=== PATIENT | female | born 1960 | race Caucasian/White ===

== ENCOUNTER 2024-09-19 10:02 | Emergency (ER) | payer MEDICARE, SELFPAY ==
[2024-09-19 10:10] VITALS: BP 174/71
[2024-09-19 11:02] VITALS: BMI 53.5
[2024-09-19 11:05] VITALS: BP 150/58
--- NOTE | 2024-09-19 11:22 | ED.GENMED ---
History of Present Illness
General
Chief Complaint: Vaginal Bleeding
Source: patient
Exam Limitations: none
Time Seen by Provider: 09/19/24 11:04
History of Present Illness
History of Present Illness:
64-year-old female presents with multiple complaints. She states she has been having vaginal bleeding over the past 2 months. She had a D&C performed at [facility]. She also had an IUD placed at that time. She noted ongoing bleeding
was seen in the emergency room at [facility] and had a pelvic exam. She describes her IUD being pushed out during the pelvic exam. Since then she is to talk to her gynecology who placed her on progesterone. She has been on this for
several days but notes increased bleeding. She has not been able to get a hold of her supervisor coffee over the past couple days. She also was placed on Bactrim 4 days ago for a lesion on the anterior chest. She believes there is an abscess there.
She notes she is fatigued and having palpitations as well. Patient notes she passes large clots at times and soaked through a pad every 2 hours.
Past History
Past History
ED Past Medical History: HTN, Hypercholesterolemia, NIDDM, Other (lymphedema) and Other (Calculus cholecystitis)
ED Past Surgical History: Cardiac, Gynecological and Other (cataracts. Vein surgery)
Social History
Tobacco: Non-smoker
Alcohol: None
Drug: None
Personal:
Living: with family
Employment: Retired
Family History
Family History: Other (Noncontributory)
Phy Exam
Physical Exam
Physical Exam:
General: Well-appearing obese female no acute respiratory distress
HEENT: Normocephalic atraumatic
Heart: Regular rate and rhythm
Lungs: Clear
Abdomen soft tender to the lower abdomen and suprapubic area
Extremities: No cyanosis or edema
Skin: Erythema and fluctuance noted overlying the lower sternum and between the breasts. She is tender to the touch no active drainage
Course
Orders/Labs/Results
Orders:
Orders
09/19/24 10:03
Electrocardiogram (*1) Urgent
Reason for Study: Chest Pain
EKG- Treatment ONCE
09/19/24 11:17
US Chest - Left Urgent
Comment:
Reason For Exam: possible abscess anterior chest
US Pelvis W Transvag Combined Urgent
Comment:
Reason For Exam: vaginal bleeding, pelvic pain
09/19/24 11:51
Blood Group&Type Urgent
BBK Wristband Number:
Complete Blood Count/With Diff Urgent
Comprehensive Metabolic Panel Urgent
09/19/24 12:15
Type+Screen Routine
BBK Wristband Number:
Abnormal Lab Results
09/19/24
11:51
RBC 3.72 L 10^6/uL
(4.20-5.40)
Hgb 11.7 L g/dL
(12.0-16.0)
Hct 35.8 L %
(37.0-47.0)
MCH 31.5 H pg
(27.0-31.0)
MCHC 32.7 L g/dL
(33.0-37.0)
Absolute Monos (auto) 0.8 H 10^3/uL
(0.1-0.6)
Monocytes % 12.7 H %
(1.7-9.3)
Glucose 128 H mg/dl
(70-99)
09/19/24 11:51
09/19/24 11:51
Vital Signs
Initial and Last Documented VS:
Initial Vital Signs
Temp Pulse Resp BP Pulse Ox
98.5 F 65 18 174/71 100
09/19/24 10:10 09/19/24 10:10 09/19/24 10:10 09/19/24 10:10 09/19/24 10:10
Last Documented Vital Signs
Temp Pulse Resp BP Pulse Ox
98.5 F 64 14 117/55 97
09/19/24 15:31 09/19/24 15:31 09/19/24 15:31 09/19/24 15:31 09/19/24 15:31
MDM/Problems Addressed
Differential Diagnosis Includes:
Patient with multiple. First complaint is ongoing vaginal bleeding status post D&C performed at [facility]. Check for anemia or electrolyte abnormality. Will order ultrasound of the pelvis.
Second complaint is ongoing painful spot on the anterior chest and between her breasts. Question possible cellulitis versus abscess. Ultrasound of this pending
She complained of palpitations. This may be related to blood loss however she is normal sinus rhythm 60s on the monitor. Will obtain formal EKG.
*Critical Care Note
Total Time (30-74mins, 75-104mins- exclusive of procedures): Not Applicable
Update Note
Update Note:
Labs reviewed hemoglobin 11.7. She remained hemodynamically stable. Ultrasound of pelvis shows no evidence of IUD. There is a slightly thickened endometrial stripe. There is also an ovarian cyst which is chronic. There is a sebaceous cyst on
the anterior chest wall that is infected on ultrasound. These findings with the patient's supervisor coffee, Doctor Slim Lagunas, from [facility]. He was aware of all these findings. He is findings are chronic. Will represcribe Provera 10
mg twice a day. They will follow-up with her.
With sebaceous cyst was incised and drained under sterile conditions. A large amount of purulent material as well as sebaceous material and the wall the cyst was removed from the incision. This was dressed with a dry dressing. She is currently on
an antibiotic which advise she continue. No indication for admission. Stable for discharge
ED Attending Note
-
Portions of this chart may have been created with voice recognition software.� Occasional wrong word or��sound alike� substitutions may have occurred due to the inherent limitations of voice recognition software.
Discharge Plan
Departure
Patient Disposition: Home (Routine Discharge)
Date of Disposition: 09/19/24
Time of Disposition: 16:05
Patient with high blood pressure during this ER visit?: No
Discharge Problem:
Abnormal vaginal bleeding, Infected sebaceous cyst
Prescriptions:
New
medroxyprogesterone [Provera] 10 mg tablet
10 mg PO BID Qty: 14 0RF
No Action
cetirizine 10 MG tablet
10 mg PO DAILY
allopurinol 300 MG tablet
300 mg PO DAILY
gabapentin 100 MG capsule
200 mg PO TID
cholecalciferol (vitamin D3) [Vitamin D3] 1,000 UNIT capsule
50,000 unit PO WE
aspirin 81 MG tablet,chewable
81 mg PO DAILY 0RF
albuterol sulfate [Ventolin HFA] 90 MCG/PUFF HFA aerosol inhaler
2 puff inhalation Q4HPRN PRN (Reason: sob)
ezetimibe 10 MG tablet
10 mg PO DAILY
levothyroxine 125 MCG tablet
125 mcg PO DAILY AT 0700
nitrofurantoin 100 mg Capsule
100 mg PO .1900
sulfamethoxazole-trimethoprim [Bactrim DS] 800-160 mg Tablet
1 tab PO BID
vitamin E 400 unit Tablet
45 mg PO DAILY
betamethasone dipropionate 0.05 % Cream
1 applic TOPICAL DAILY
norethindrone acetate 5 mg Tablet
5 mg PO TID
ketoconazole 2 % Cream
1 applic TOPICAL BID
liraglutide [Victoza 2-Alejo] 0.6 mg/0.1 mL (18 mg/3 mL) Pen Injector
1.8 mg SC DAILY
mirabegron [Myrbetriq] 50 mg Tablet Extended Release 24 Hr
50 mg PO DAILY
fluticasone furoate-vilanterol [Breo Ellipta] 200-25 mcg/dose Blister With Device
1 inh INHALATION DAILY
Praluent Pen 150 mg/mL Pen Injector
150 mg SC Q14D
furosemide [Lasix] 40 MG tablet
20 mg PO DAILY
losartan 50 MG tablet
50 mg PO BID
carvedilol 6.25 MG tablet
6.25 mg PO BID
hydrocodone-acetaminophen 1 EACH tablet
1 ea PO PRN PRN (Reason: pain)
insulin aspart U-100 [Novolog U-100 Insulin aspart] 1,000 UNITS/10 ML solution
20 units SC AC
Levemir U-100 Insulin 1,000 UNITS/10 ML solution
30 - 40 units SC HS
Referrals:
UNKNOWN - PT DOES,NOT KNOW [Family Provider] -
Activity Restrictions/Additional Instructions:
Continue antibiotic. Continue with progesterone. Follow-up with your supervisor coffee. Return if worse otherwise.
Interventions
Interventions:
*Risk Screen - Suicide Last Done: 09/19/24 10:10
*General Assessment Last Done: 09/19/24 10:10
*Neglect/Abuse Screening Last Done: 09/19/24 10:10
ED- Fall Risk Assessment Last Done: 09/19/24 11:03
*ED COVID-19 Vaccine History Last Done: 09/19/24 11:02
ED- Pulmonary Assessment Last Done: 09/19/24 15:31
ED- Neurological Assessment Last Done: 09/19/24 15:31
ED-Female Genitourinary Assessment Last Done: 09/19/24 11:11
ED- Cardiac Assessment Last Done: 09/19/24 15:31
Discharge Date and Time
Print Language: FRISIAN
[2024-09-19 12:11] LABS: % Basophils 0.7 % (0-2); % Eosinophils 3.1 % (0-6); % Immature Granulocytes 0.3 % (0-0.5); % Lymphocytes 35.1 % (20.5-51.1); % Monocytes 12.7 % (1.7-9.3); % Neutrophils 48.1 % (42.2-75.2); Absolute Eosinophils 0.2 10^3/uL (0-0.7); Absolute Lymphocytes 2.2 10^3/uL (1.2-3.4); Absolute Monocytes 0.8 10^3/uL (0.1-0.6); Hematocrit 35.8 % (37.0-47.0); Hemoglobin 11.7 g/dL (12.0-16.0); Mean Corp Hgb Conc. 32.7 g/dL (33.0-37.0); Mean Corpuscular Hgb 31.5 pg (27.0-31.0); Mean Corpuscular Volume 96.2 fL (81.0-99.0); Nucleated Red Blood Cells % 0 %; Platelet Count 203 10^3/uL (130-400); Red Blood Cell Count 3.72 10^6/uL (4.20-5.40); Red Cell Dist. Width 13.3 % (11.5-14.5); White Blood Cell Count 6.1 10^3/uL (4.8-10.8)
[2024-09-19 12:19] VITALS: BP 138/67
[2024-09-19 12:28] LABS: ALT (SGPT) 28 U/L (0-35); AST (SGOT) 34 U/L (14-36); Albumin 3.6 g/dl (3.5-5.0); Alkaline Phosphatase 50 U/L (38-126); Blood Urea Nitrogen 16 mg/dl (7-17); Calcium 9.1 mg/dl (8.4-10.2); Carbon Dioxide 24 mmol/L (22-30); Chloride 105 mmol/L (98-107); Estimated Creatinine Clearance 93 ml/min; Glucose 128 mg/dl (70-99); Potassium 4.7 mmol/L (3.5-5.1); Sodium 137 mmol/L (135-145); Total Bilirubin 0.7 mg/dl (0.2-1.3); Total Protein 6.5 g/dl (6.3-8.2); eGFR > 60.00
[2024-09-19 13:11] VITALS: BP 150/72
[2024-09-19 15:31] VITALS: BP 117/55
== END 2024-09-19 16:25 | disposition home or self-care (01) ==
LOC: EMR 10:02
PROVIDERS: Physician Assistant; EMERGENCY PHYSICIAN Emergency Medicine
DX: N93.9 Abnormal uterine and vaginal bleeding, unspecified (principal); L08.9 Local infection of the skin and subcutaneous tissue, unspecified; L72.3 Sebaceous cyst
CPT/HCPCS: 99285; 10060; 76604; 76830; 76856; 80053; 85025; 86850; 86900; 86901; 93005

== ENCOUNTER 2024-09-22 11:54 | Emergency (ER) | payer MEDICARE, SELFPAY ==
[2024-09-22 11:57] VITALS: BP 212/98
[2024-09-22 12:23] LABS: % Basophils 0.5 % (0-2); % Eosinophils 3.5 % (0-6); % Immature Granulocytes 0.5 % (0-0.5); % Monocytes 8.3 % (1.7-9.3); % Neutrophils 53.2 % (42.2-75.2); Absolute Eosinophils 0.2 10^3/uL (0-0.7); Absolute Lymphocytes 2.2 10^3/uL (1.2-3.4); Absolute Monocytes 0.5 10^3/uL (0.1-0.6); Absolute Neutrophils 3.5 10^3/uL (1.4-6.5); Hematocrit 35.9 % (37.0-47.0); Mean Corp Hgb Conc. 33.4 g/dL (33.0-37.0); Mean Corpuscular Hgb 32.4 pg (27.0-31.0); Mean Platelet Volume 9.7 fL (7.4-10.4); Nucleated Red Blood Cells % 0 %; Platelet Count 240 10^3/uL (130-400); Red Cell Dist. Width 13.2 % (11.5-14.5); White Blood Cell Count 6.5 10^3/uL (4.8-10.8)
[2024-09-22 12:39] LABS: ALT (SGPT) 39 U/L (0-35); AST (SGOT) 38 U/L (14-36); Albumin 3.7 g/dl (3.5-5.0); Alkaline Phosphatase 55 U/L (38-126); Blood Urea Nitrogen 14 mg/dl (7-17); Calcium 9.2 mg/dl (8.4-10.2); Carbon Dioxide 24 mmol/L (22-30); Chloride 103 mmol/L (98-107); Glucose 245 mg/dl (70-99); Potassium 4.4 mmol/L (3.5-5.1); Sodium 136 mmol/L (135-145); Total Bilirubin 0.7 mg/dl (0.2-1.3); Total Protein 6.7 g/dl (6.3-8.2); eGFR > 60.00
--- NOTE | 2024-09-22 12:43 | ED.GENMED ---
History of Present Illness
General
Chief Complaint: Vaginal Bleeding
Source: patient
Exam Limitations: none
Time Seen by Provider: 09/22/24 12:44
Nursing documentation reviewed up to this point in time: agreed with
History of Present Illness
History of Present Illness:
64 old female presents to the ER for evaluation of continued vaginal bleeding. She has had vaginal bleeding for the past 3 months. She is followed by [facility]. They are aware. Patient was seen here September 19 3 days ago
days ago for similar complaints. At that time she had an ultrasound which showed a slightly thickened endometrial stripe. She had chronic ovarian cyst. Patient was prescribed Provera 10 mg twice a day as recommended by her TIRE MAKER(as per her
[facility] [employer] [employer] at [facility] . She reports last night she passed a 6 golf ball size clots which is what prompted her to come back to the ER. She called her [employer] and spoke to the nurse who recommended she come to the ER. She does feel lightheaded and dehydrated.
Past History
Past History
ED Past Medical History: HTN, Hypercholesterolemia, NIDDM, Other (lymphedema) and Other (Calculus cholecystitis)
ED Past Surgical History: Cardiac, Gynecological and Other (cataracts. Vein surgery)
Social History
Tobacco: Non-smoker
Alcohol: None
Drug: None
Personal:
Living: with family
Employment: Retired
Family History
Family History: Other (Noncontributory)
Review of Systems
Review of Systems
Allergies reviewed?: Yes
All Other Systems: ROS reviewed and negative except as documented in HPI and ROS
Constitutional: Reports no symptoms
ABD/GI: Reports other (mild lower abd cramping + vaginal bleeding/clots )
: Reports no symptoms
Musculoskeletal: Reports no symptoms
Skin: Reports no symptoms
Neurological: Reports no symptoms
Psychiatric: Reports no symptoms
Phy Exam
General Physical Exam
General Presentation: no apparent distress
General age: appears stated age
General Skin: warm and dry
General Habitus: normal
General Mental: alert
General Hydration: appears well hydrated
Gastrointestinal Exam
Gastrointestinal Exam: non tender and soft
Genitourinary Exam Female
Exam Female: other ( no active bleeding + small amt of blood in vaginal vault )
Neurological Exam
Neurological Exam: alert and oriented x3
Musculoskeletal Exam
Musculoskeletal Exam: full ROM
Skin Exam
Skin Exam: normal color and warm/dry
Psychiatric Exam
Psychiatric Exam: normal mood/affect
Course
Orders/Labs/Results
Orders:
Orders
09/22/24 12:01
Electrocardiogram (*1) Urgent
Reason for Study: Palpitations
EKG- Treatment ONCE
09/22/24 12:15
CMP [Comprehensive Metabolic Panel] Urgent
Complete Blood Count/With Diff Urgent
09/22/24 14:03
Vital Signs- Treatment ONCE
Frequency: Once
Abnormal Lab Results
09/22/24
12:15
RBC 3.70 L 10^6/uL
(4.20-5.40)
Hct 35.9 L %
(37.0-47.0)
MCH 32.4 H pg
(27.0-31.0)
Glucose 245 H mg/dl
(70-99)
AST 38 H U/L
(14-36)
ALT 39 H U/L
(0-35)
09/22/24 12:15
09/22/24 12:15
Vital Signs
Initial and Last Documented VS:
Initial Vital Signs
Temp Pulse Resp BP Pulse Ox
98.1 F 90 20 212/98 100
09/22/24 11:57 09/22/24 11:57 09/22/24 11:57 09/22/24 11:57 09/22/24 11:57
Last Documented Vital Signs
Temp Pulse Resp BP Pulse Ox
98.1 F 84 20 147/58 97
09/22/24 11:57 09/22/24 14:00 09/22/24 14:00 09/22/24 14:36 09/22/24 14:00
Asphalt Smoother consulted with Physician
Asphalt Smoother consulted with physician?: Yes
Name of Physician Consulted: Desire
MDM/Problems Addressed
MDM/Problems Addressed:
64-year-old female with chronic vaginal bleeding for several months presents to the ER. Patient has been followed by [facility] [employer] . Patient was seen here 3 days ago and had ultrasound as documented above. Her TIRE MAKER at that time
recommended 10 mg of Provera twice a day.
She presents back to the ER with persistent vaginal bleeding. She reports he feels a little dizzy and lightheaded. She however presents very stable and awake alert no acute distress hemoglobin is actually improved from previous visit 3 days ago.
Hemoglobin is stable at 12.0. On pelvic exam there is no active bleeding there is small amount of blood in the vaginal vault. I did speak with her TIRE MAKER on-call again Dr. Dumont who does recommend increasing Provera from 10 mg twice daily to 10
mg 3 times daily and she is to follow-up in their office for future management.
ED Attending Note
-
Portions of this chart may have been created with voice recognition software.� Occasional wrong word or��sound alike� substitutions may have occurred due to the inherent limitations of voice recognition software.
Discharge Plan
Departure
Patient Disposition: Home (Routine Discharge)
Date of Disposition: 09/22/24
Time of Disposition: 14:03
Patient with high blood pressure during this ER visit?: Yes
Condition: Fair
Covid-19: Not Applicable
Discharge Problem:
vaginal bleeding
Instructions: BLOOD PRESSURE
Prescriptions:
New
medroxyprogesterone [Provera] 10 mg tablet
10 mg PO TID Qty: 21 0RF
No Action
cetirizine 10 MG tablet
10 mg PO DAILY
allopurinol 300 MG tablet
300 mg PO DAILY
gabapentin 100 MG capsule
200 mg PO TID
cholecalciferol (vitamin D3) [Vitamin D3] 1,000 UNIT capsule
50,000 unit PO WE
aspirin 81 MG tablet,chewable
81 mg PO DAILY 0RF
albuterol sulfate [Ventolin HFA] 90 MCG/PUFF HFA aerosol inhaler
2 puff inhalation Q4HPRN PRN (Reason: sob)
ezetimibe 10 MG tablet
10 mg PO DAILY
levothyroxine 125 MCG tablet
125 mcg PO DAILY AT 0700
nitrofurantoin 100 mg Capsule
100 mg PO .1900
sulfamethoxazole-trimethoprim [Bactrim DS] 800-160 mg Tablet
1 tab PO BID
vitamin E 400 unit Tablet
45 mg PO DAILY
betamethasone dipropionate 0.05 % Cream
1 applic TOPICAL DAILY
norethindrone acetate 5 mg Tablet
5 mg PO TID
ketoconazole 2 % Cream
1 applic TOPICAL BID
liraglutide [Victoza 2-Alejo] 0.6 mg/0.1 mL (18 mg/3 mL) Pen Injector
1.8 mg SC DAILY
mirabegron [Myrbetriq] 50 mg Tablet Extended Release 24 Hr
50 mg PO DAILY
fluticasone furoate-vilanterol [Breo Ellipta] 200-25 mcg/dose Blister With Device
1 inh INHALATION DAILY
Praluent Pen 150 mg/mL Pen Injector
150 mg SC Q14D
furosemide [Lasix] 40 MG tablet
20 mg PO DAILY
medroxyprogesterone [Provera] 10 mg tablet
10 mg PO BID Qty: 14 0RF
losartan 50 MG tablet
50 mg PO BID
carvedilol 6.25 MG tablet
6.25 mg PO BID
hydrocodone-acetaminophen 1 EACH tablet
1 ea PO PRN PRN (Reason: pain)
insulin aspart U-100 [Novolog U-100 Insulin aspart] 1,000 UNITS/10 ML solution
20 units SC AC
Levemir U-100 Insulin 1,000 UNITS/10 ML solution
30 - 40 units SC HS
Activity Restrictions/Additional Instructions:
You were seen here today for persistent vaginal bleeding. As discussed your hemoglobin is stable at 12.0. As discussed with your TIRE MAKER you may increase your Provera from 10 mg twice a day to 10 mg 3 times a day. Please follow-up with your
com writer in the next several days call today to make an appointment. Return if any worsening of symptoms.
Interventions
Interventions:
*Risk Screen - Suicide Last Done: 09/22/24 11:57
*General Assessment Last Done: 09/22/24 11:57
*Neglect/Abuse Screening Last Done: 09/22/24 11:57
*ED COVID-19 Vaccine History Last Done: 09/22/24 11:57
*Nursing Disposition Last Done: 09/22/24 14:39
ED-Female Genitourinary Assessment Last Done: 09/22/24 13:15
Discharge Date and Time
Discharge Date/Time: 09/22/24 14:39
Print Language: TAJIK
[2024-09-22 14:00] VITALS: BP 147/63
[2024-09-22 14:36] VITALS: BP 147/58
== END 2024-09-22 14:39 | disposition home or self-care (01) ==
LOC: EMR 11:54
PROVIDERS: EMERGENCY PHYSICIAN Emergency Medicine
DX: N93.9 Abnormal uterine and vaginal bleeding, unspecified (principal); R42 Dizziness and giddiness; E78.00 Pure hypercholesterolemia, unspecified; I10 Essential (primary) hypertension; E11.9 Type 2 diabetes mellitus without complications; Z87.42 Personal history of other diseases of the female genital tract; Z79.899 Other long term (current) drug therapy
CPT/HCPCS: 99284; 80053; 85025; 93005

== ENCOUNTER 2024-10-02 15:18 | Emergency (ER) | payer MEDICARE, SELFPAY ==
[2024-10-02 15:42] VITALS: BP 175/104
--- NOTE | 2024-10-02 15:54 | ED.GENMED ---
ED Provider Triage
<Jonna Brennan PA-C - Last Filed: 10/02/24 15:56>
-
Patient seen by provider in Triage?: Seen in Triage
Attestation: A medical screening examination has been initiated by a qualified medical provider. Based on the assessment performed at this time, it has been determined that an emergent medical condition may exist and the patient has been informed
that further medical evaluation and possible additional diagnostic testing may be needed.
HPI: 64yoF here with SOB primarily with exertion x 1 week. Also having palpitations. Hx CAD and CHF. States symptoms feel more like asthma.
GENERAL: Alert , in no apparent distress
EYE: No visual abnormalities.
NECK: Trachea midline
ENT: No visible abnormalities.
LUNGS: No acute respiratory distress
NEUROLOGICAL: Alert and oriented
SKIN: Skin intact. No visible changes.
MUSCULOSKELETAL: Moving extremities normally
PSYCH: Normal and appropriate interaction.
This is a medical evaluation conducted in person to initiate diagnostic evaluation and provide initial therapeutics. Please see further documentation by the treating clinician.
Cardiac labs, EKG, and CXR ordered.
History of Present Illness
<Jonna Brennan PA-C - Last Filed: 10/02/24 15:56>
General
Chief Complaint: Breathing Problem
Time Seen by Provider: 10/02/24 18:17
<Kevin Brian PA-C - Last Filed: 10/02/24 22:21>
General
Source: patient
Exam Limitations: none
History of Present Illness
History of Present Illness:
64-year-old female with history of CHF, CAD and ongoing vaginal bleeding presents with shortness of breath with exertion worsening over the past week. She has been here twice in the recent past for ongoing vaginal bleeding. She is followed by
supervisor channel process, Dr. Dumont, at [facility]. She is on Provera 10 mg 3 times a day. She notes she is passing large clots now. She feels like she cannot exchange any oxygen when she breathes in. She denies significant chest pain.
Past History
<Jonna Brennan PA-C - Last Filed: 10/02/24 15:56>
Past History
ED Past Medical History: HTN, Hypercholesterolemia, NIDDM, Other (lymphedema) and Other (Calculus cholecystitis)
ED Past Surgical History: Cardiac, Gynecological and Other (cataracts. Vein surgery)
Social History
Tobacco: Non-smoker
Alcohol: None
Drug: None
Personal:
Living: with family
Employment: Retired
Family History
Family History: Other (Noncontributory)
Phy Exam
<Kevin Brian PA-C - Last Filed: 10/02/24 22:21>
Physical Exam
Physical Exam:
General: Well-appearing obese female no acute respiratory distress while at rest
HEENT: Normocephalic atraumatic
Heart: Regular rate and rhythm holosystolic ejection murmur noted
Lungs: Diminished secondary to body habitus
Extremities: No significant pitting edema
Abdomen is soft nontender
Scores
<Kevin Brian PA-C - Last Filed: 10/02/24 22:21>
Heart Failure Risk
Heart Failure Risk Score: Not Applicable
Course
<Jonna Brennan PA-C - Last Filed: 10/02/24 15:56>
Orders/Labs/Results
Orders:
Orders
10/02/24 15:46
EKG [Electrocardiogram (*1)] Urgent
Reason for Study: Shortness of Breath
EKG- Treatment ONCE
10/02/24 15:57
Complete Blood Count/With Diff Urgent
Comprehensive Metabolic Panel Urgent
NT-proBNP Urgent
Troponin I Urgent
10/02/24 18:31
CT Chest Pe Study Urgent
Comment:
Reason For Exam: sob
Abnormal Lab Results
10/02/24
15:57
RBC 3.08 L 10^6/uL
(4.20-5.40)
Hgb 9.8 L g/dL
(12.0-16.0)
Hct 29.9 L %
(37.0-47.0)
MCH 31.8 H pg
(27.0-31.0)
MCHC 32.8 L g/dL
(33.0-37.0)
Absolute Monos (auto) 0.8 H 10^3/uL
(0.1-0.6)
Monocytes % 9.4 H %
(1.7-9.3)
BUN 18 H mg/dl
(7-17)
Glucose 180 H mg/dl
(70-99)
10/02/24 15:57
10/02/24 15:57
Vital Signs
Initial and Last Documented VS:
Initial Vital Signs
Temp Pulse Resp BP Pulse Ox
98.0 F 69 18 175/104 100
10/02/24 15:42 10/02/24 15:42 10/02/24 15:42 10/02/24 15:42 10/02/24 15:42
Last Documented Vital Signs
Temp Pulse Resp BP Pulse Ox
98.0 F 82 23 156/54 99
10/02/24 15:42 10/02/24 22:00 10/02/24 22:00 10/02/24 21:15 10/02/24 22:00
Ginnalt;Kevin Brian PA-C - Last Filed: 10/02/24 22:21>
Orders/Labs/Results
Orders:
Orders
10/02/24 15:46
EKG [Electrocardiogram (*1)] Urgent
Reason for Study: Shortness of Breath
EKG- Treatment ONCE
10/02/24 15:57
Complete Blood Count/With Diff Urgent
Comprehensive Metabolic Panel Urgent
NT-proBNP Urgent
Troponin I Urgent
10/02/24 18:31
CT Chest Pe Study Urgent
Comment:
Reason For Exam: sob
Abnormal Lab Results
10/02/24
15:57
RBC 3.08 L 10^6/uL
(4.20-5.40)
Hgb 9.8 L g/dL
(12.0-16.0)
Hct 29.9 L %
(37.0-47.0)
MCH 31.8 H pg
(27.0-31.0)
MCHC 32.8 L g/dL
(33.0-37.0)
Absolute Monos (auto) 0.8 H 10^3/uL
(0.1-0.6)
Monocytes % 9.4 H %
(1.7-9.3)
BUN 18 H mg/dl
(7-17)
Glucose 180 H mg/dl
(70-99)
10/02/24 15:57
10/02/24 15:57
Vital Signs
Initial and Last Documented VS:
Initial Vital Signs
Temp Pulse Resp BP Pulse Ox
98.0 F 69 18 175/104 100
10/02/24 15:42 10/02/24 15:42 10/02/24 15:42 10/02/24 15:42 10/02/24 15:42
Last Documented Vital Signs
Temp Pulse Resp BP Pulse Ox
98.0 F 82 23 156/54 99
10/02/24 15:42 10/02/24 22:00 10/02/24 22:00 10/02/24 21:15 10/02/24 22:00
<Kevin Brian PA-C - Last Filed: 10/02/24 22:21>
MDM/Problems Addressed
Differential Diagnosis Includes:
Shortness of breath with exertion. Consider CHF versus anemia versus PE versus ACS
Patient has ongoing vaginal bleeding being followed by gynecology at [facility]. Will check labs. Labs include troponin and BNP. EKG shows sinus rhythm without ischemic changes. Given vaginal bleeding in a postmenopausal patient
concern for possible neoplastic process which may put her at increased risk for PE. PE study ordered.
<Kevin Brian PA-C - Last Filed: 10/02/24 22:21>
*Critical Care Note
Total Time (30-74mins, 75-104mins- exclusive of procedures): Not Applicable
<Kevin Brian PA-C - Last Filed: 10/02/24 22:21>
Update Note
Update Note:
Patient reevaluated. Vital signs remained stable. PE study is negative. Had long discussion with patient. When ambulating her oxygen did not drop nor did she become tachycardic. No indication for admission. Will recommend close follow-up with
And recheck of blood work and 2 to 3 days. Return precautions were given
ED Attending Note
<Jonna Brennan PA-C - Last Filed: 10/02/24 15:56>
-
Portions of this chart may have been created with voice recognition software.� Occasional wrong word or��sound alike� substitutions may have occurred due to the inherent limitations of voice recognition software.
Discharge Plan
Departure
Patient Disposition: Home (Routine Discharge)
Date of Disposition: 10/02/24
Time of Disposition: 22:19
Patient with high blood pressure during this ER visit?: No
Discharge Problem:
Dyspnea, Vaginal bleeding
Instructions: Shortness of Breath (Dyspnea) (DC)
Prescriptions:
No Action
cetirizine 10 MG tablet
10 mg PO DAILY
allopurinol 300 MG tablet
300 mg PO DAILY
gabapentin 100 MG capsule
200 mg PO TID
cholecalciferol (vitamin D3) [Vitamin D3] 1,000 UNIT capsule
50,000 unit PO WE
aspirin 81 MG tablet,chewable
81 mg PO DAILY 0RF
albuterol sulfate [Ventolin HFA] 90 MCG/PUFF HFA aerosol inhaler
2 puff inhalation Q4HPRN PRN (Reason: sob)
ezetimibe 10 MG tablet
10 mg PO DAILY
levothyroxine 125 MCG tablet
125 mcg PO DAILY AT 0700
nitrofurantoin 100 mg Capsule
100 mg PO .1900
sulfamethoxazole-trimethoprim [Bactrim DS] 800-160 mg Tablet
1 tab PO BID
vitamin E 400 unit Tablet
45 mg PO DAILY
betamethasone dipropionate 0.05 % Cream
1 applic TOPICAL DAILY
norethindrone acetate 5 mg Tablet
5 mg PO TID
ketoconazole 2 % Cream
1 applic TOPICAL BID
liraglutide [Victoza 2-Alejo] 0.6 mg/0.1 mL (18 mg/3 mL) Pen Injector
1.8 mg SC DAILY
mirabegron [Myrbetriq] 50 mg Tablet Extended Release 24 Hr
50 mg PO DAILY
fluticasone furoate-vilanterol [Breo Ellipta] 200-25 mcg/dose Blister With Device
1 inh INHALATION DAILY
Praluent Pen 150 mg/mL Pen Injector
150 mg SC Q14D
furosemide [Lasix] 40 MG tablet
20 mg PO DAILY
medroxyprogesterone [Provera] 10 mg tablet
10 mg PO BID Qty: 14 0RF
medroxyprogesterone [Provera] 10 mg tablet
10 mg PO TID Qty: 21 0RF
losartan 50 MG tablet
50 mg PO BID
carvedilol 6.25 MG tablet
6.25 mg PO BID
hydrocodone-acetaminophen 1 EACH tablet
1 ea PO PRN PRN (Reason: pain)
insulin aspart U-100 [Novolog U-100 Insulin aspart] 1,000 UNITS/10 ML solution
20 units SC AC
Levemir U-100 Insulin 1,000 UNITS/10 ML solution
30 - 40 units SC HS
Referrals:
[facility] [Other]
Activity Restrictions/Additional Instructions:
Rest. Stay hydrated. Consider using iron supplements 325 mg daily. Have blood rechecked in 2 to 3 days and follow-up with family doctor for results. Return here for increased bleeding or symptoms. Follow-up with your specialist as planned
otherwise
Interventions
Interventions:
*Risk Screen - Suicide Last Done: 10/02/24 15:42
*General Assessment Last Done: 10/02/24 15:42
*Neglect/Abuse Screening Last Done: 10/02/24 18:40
*ED COVID-19 Vaccine History Last Done: 10/02/24 15:42
ED- Cardiac Assessment Last Done: 10/02/24 18:38
ED- Pulmonary Assessment Last Done: 10/02/24 18:38
Discharge Date and Time
Print Language: HEBREW
[2024-10-02 16:13] LABS: % Basophils 0.6 % (0-2); % Eosinophils 3.1 % (0-6); % Immature Granulocytes 0.4 % (0-0.5); % Lymphocytes 36.5 % (20.5-51.1); % Monocytes 9.4 % (1.7-9.3); Absolute Basophils 0.1 10^3/uL (0-0.2); Absolute Eosinophils 0.3 10^3/uL (0-0.7); Absolute Lymphocytes 2.9 10^3/uL (1.2-3.4); Absolute Monocytes 0.8 10^3/uL (0.1-0.6); Hematocrit 29.9 % (37.0-47.0); Hemoglobin 9.8 g/dL (12.0-16.0); Mean Corp Hgb Conc. 32.8 g/dL (33.0-37.0); Mean Corpuscular Hgb 31.8 pg (27.0-31.0); Mean Corpuscular Volume 97.1 fL (81.0-99.0); Mean Platelet Volume 10.2 fL (7.4-10.4); Nucleated Red Blood Cells % 0 %; Platelet Count 252 10^3/uL (130-400); Red Blood Cell Count 3.08 10^6/uL (4.20-5.40); Red Cell Dist. Width 13.3 % (11.5-14.5)
[2024-10-02 16:23] LABS: ALT (SGPT) 29 U/L (0-35); AST (SGOT) 24 U/L (14-36); Albumin 3.5 g/dl (3.5-5.0); Alkaline Phosphatase 62 U/L (38-126); Blood Urea Nitrogen 18 mg/dl (7-17); Calcium 9.2 mg/dl (8.4-10.2); Carbon Dioxide 24 mmol/L (22-30); Chloride 102 mmol/L (98-107); Glucose 180 mg/dl (70-99); Potassium 4.6 mmol/L (3.5-5.1); Sodium 135 mmol/L (135-145); Total Bilirubin 0.6 mg/dl (0.2-1.3); Total Protein 6.3 g/dl (6.3-8.2); eGFR > 60.00
[2024-10-02 16:34] LABS: NT-proBNP 90.3 pg/ml; Troponin I < 0.012 ng/ml
[2024-10-02 18:23] VITALS: BP 168/57
[2024-10-02 18:37] VITALS: BMI 53.0
[2024-10-02 19:00] VITALS: BP 142/48
[2024-10-02 20:00] VITALS: BP 151/80
[2024-10-02 21:15] VITALS: BP 156/54
== END 2024-10-02 22:38 | disposition home or self-care (01) ==
LOC: EMR 15:18
PROVIDERS: Physician Assistant; EMERGENCY PHYSICIAN Emergency Medicine; REFERRING PHYSICIAN Internal Medicine Cardiovascular Disease
DX: R06.00 Dyspnea, unspecified (principal); N93.9 Abnormal uterine and vaginal bleeding, unspecified; R00.2 Palpitations; I11.0 Hypertensive heart disease with heart failure; I50.9 Heart failure, unspecified; E11.36 Type 2 diabetes mellitus with diabetic cataract; E78.00 Pure hypercholesterolemia, unspecified; I25.10 Atherosclerotic heart disease of native coronary artery without angina pectoris; J45.909 Unspecified asthma, uncomplicated; Z79.82 Long term (current) use of aspirin; Z88.1 Allergy status to other antibiotic agents; Z91.040 Latex allergy status; Z88.8 Allergy status to other drugs, medicaments and biological substances; Z91.048 Other nonmedicinal substance allergy status
CPT/HCPCS: 99284; 71275; 80053; 83880; 84484; 85025; 93005; Q9967

== ENCOUNTER → 2025-02-03 08:59 | Outpatient (REF) | payer MEDICARE, SELFPAY ==
[2025-02-03 11:07] LABS: ALT (SGPT) 17 U/L (0-35); AST (SGOT) 22 U/L (14-36); Albumin 3.9 g/dl (3.5-5.0); Alkaline Phosphatase 78 U/L (38-126); Blood Urea Nitrogen 14 mg/dl (7-17); Calcium 9.5 mg/dl (8.4-10.2); Carbon Dioxide 26 mmol/L (22-30); Chloride 106 mmol/L (98-107); Glucose 115 mg/dl (70-99); Potassium 4.5 mmol/L (3.5-5.1); Sodium 140 mmol/L (135-145); Total Bilirubin 0.8 mg/dl (0.2-1.3); Total Protein 6.6 g/dl (6.3-8.2); eGFR > 60.00
[2025-02-03 11:31] LABS: % Basophils 0.7 % (0-2); % Immature Granulocytes 0.3 % (0-0.5); % Lymphocytes 31.3 % (20.5-51.1); % Monocytes 11.9 % (1.7-9.3); % Neutrophils 53.8 % (42.2-75.2); Absolute Basophils 0.1 10^3/uL (0-0.2); Absolute Eosinophils 0.2 10^3/uL (0-0.7); Absolute Monocytes 1.1 10^3/uL (0.1-0.6); Absolute Neutrophils 5.1 10^3/uL (1.4-6.5); Hematocrit 35.9 % (37.0-47.0); Hemoglobin 10.8 g/dL (12.0-16.0); Mean Corp Hgb Conc. 30.1 g/dL (33.0-37.0); Mean Corpuscular Hgb 24.1 pg (27.0-31.0); Mean Corpuscular Volume 80.1 fL (81.0-99.0); Mean Platelet Volume 9.7 fL (7.4-10.4); Nucleated Red Blood Cells % 0 %; Platelet Count 310 10^3/uL (130-400); Red Blood Cell Count 4.48 10^6/uL (4.20-5.40); White Blood Cell Count 9.4 10^3/uL (4.8-10.8)
== END ==
LOC: SDSPAT 08:59
PROVIDERS: ATTENDING PHYSICIAN Internal Medicine Interventional Cardiology; FAMILY PHYSICIAN Family Medicine; OTHER PHYSICIAN Internal Medicine Cardiovascular Disease
DX: R94.30 Abnormal result of cardiovascular function study, unspecified (principal)
CPT/HCPCS: 36415; 80053; 85025; 93005

== ENCOUNTER 2025-02-05 07:22 | Day surgery (SDC) | payer MEDICARE, SELFPAY ==
[2025-02-03 10:24] VITALS: BMI 52.4
[2025-02-05] VITALS (13 sets, daily range): BP systolic 122–158; BP diastolic 46–77; BMI 52.5
[2025-02-05 08:29] LABS: Glucose - Point of Care 225 mg/dl (70-99)
[2025-02-05 13:23] LABS: Glucose - Point of Care 170 mg/dl (70-99)
[2025-02-05] MEDS: NSS 1000 IV (13:58)
--- NOTE | 2025-02-05 15:47 | CM ---
CM following for DC planning needs.
Met w/ patient and son at bedside to complete initial assessment.
Pt. resides w/ son in a private, single story condo, which is ramp accessible. 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 Pt. uses a RW occasionally.
Pt. has RX plan and uses [facility] for prescription needs.
Antic. DC plan is for home without needs.
Will cont. to follow.
[2025-02-05 16:39] LABS: Glucose - Point of Care 178 mg/dl (70-99)
[2025-02-05] MEDS: PROVERA 10 MG PO ×2 (18:15→22:19)
[2025-02-05] MEDS: LASIX 20 MG PO (18:15)
[2025-02-05] MEDS: NEURONTIN 200 MG PO ×2 (18:16→22:19)
--- NOTE | 2025-02-05 18:59 | ITS.CL.CATH ---
Bottom Cementer - Catheterization
Cardiac Catheterization
Procedure Report:
LEFT HEART CATHETERIZATION AND CORONARY INTERVENTION
Date of Procedure: February 05, 2025
Referring: Va Cohen MD
PROCEDURES:
1. Left heart catheterization, coronary angiogram.
2. Moderate sedation.
3. IVL shockwave
4. Successful percutaneous intervention of a 80 to 85% heavily calcified proximal left circumflex and a 85 to 90% ostial left circumflex flex stenosis with one 2.75 x 22 mm Medtronic [place] drug-eluting stent post IV L shockwave atherectomy,
postdilated using IVUS guidance with a 2.75 x 15 mm NC balloon at 18 bernard distally and a 3.25 x 8 mm NC balloon at 16 bernard proximally with an excellent angiographic result.
5. Functional physiologic testing with IFR of OM 2.
6. Functional physiologic testing with IFR of OM1.
7. Intravascular ultrasound (IVUS).
INDICATION: Abnormal stress test
ACCESS: Right radial artery
Ultrasound was utilized for vascular access. The radial artery was visualized under ultrasound, and the vessel was patent and pulsatile. An image was stored permanently in the patient's medical record. Under direct ultrasound guidance, a 6 Tamazight
sheath was inserted into the artery using a micropuncture kit through a modified Seldinger technique.
HEMODYNAMICS : (mmHg)
AO (s/d) : 146/82
LV (s/d) : 158/15
LVEDP : 24
CORONARY FINDINGS
DOMINANCE: Right
LEFT MAIN: The left main artery is a large-caliber vessel which gives rise to the left anterior descending artery and the left circumflex artery. There is mild diffuse atherosclerotic plaque.
LEFT ANTERIOR DESCENDING: The left anterior descending artery is a medium to large caliber vessel which gives rise to multiple diagonal branches as it courses through the anterior interventricular groove. There is a known chronic total occlusion
100% in the distal LAD with left to left collaterals filling the apex. Previously placed mid to distal LAD stent is patent with eccentric 60 to 70% stenosis proximal to the stent and 40% stenosis distal to the stent.
CIRCUMFLEX: The left circumflex artery is a medium caliber vessel which gives rise to 2 major obtuse marginal branches. There is 30% ostial left circumflex stenosis. Proximal left circumflex has a 80% heavily calcified stenosis just proximal to
the takeoff of a medium caliber OM1. OM1 has a ostial 85 to 90% stenosis. OM 2 is a small to medium caliber vessel which was jailed after prior PCI in 2019 with diffuse disease up to 75 to 80% and a occlusion in the distalmost portion with left to
left collaterals. Mid circumflex into OM 30 has a prior stent with mild in-stent restenosis. Distal portion of OM 3 is diffusely diseased and very small in caliber..
RIGHT CORONARY ARTERY: The right coronary artery is a medium to large caliber dominant vessel which gives rise to the right posterior descending artery and the right posterolateral system. There is a ostial 50% stenosis. Mid RCA has 30 to 40%
stenosis.
HEMODYNAMIC ASSESSMENT OF THE PROXIMAL CIRCUMFLEX/OM 2 WITH A VOL[place]O OMNI WIRE: The origin of the left coronary artery was cannulated with a 6 Fr EBU 3.5 guide catheter. Intravenous heparin was administered and the ACT was followed during the
procedure. Two hundred micrograms of intracoronary nitroglycerin was given through the guide catheter. A [place] Omni wire was advanced to the guide catheter tip and normalized just outside the guide catheter. The Omni wire was then carefully
manipulated across the stenosis in the proximal circumflex and OM 2 with the iFR below the ischemic threshold serially measuring 0.65, 0.65, 0.66. At this point we advanced a 190 cm 0.014' BMW wire into OM 2 and pulled back to the Omni wire to
confirm lack of drift. The Omni wire was then pulled back to the guide catheter where the Pd/Pa measured 1.0 confirming no baseline drift in pressure readings. We then redirected the Omni wire into the OM1 after we normalizing just outside the
guide tip with iFR continuing to be below the ischemic threshold serially measuring 0.49, 0.52 and 0.50.
CORONARY INTERVENTION: Decision was then made to proceed with percutaneous intervention of proximal left circumflex first. Additional heparin was given to maintain a therapeutic ACT throughout the case. We initially predilated the lesion using a
3.0 x 12 mm semicompliant balloon without full expansion. Decision was made to then proceed with IV L shockwave given significant calcium present there. We used a 3.5 x 12 shockwave balloon and delivered all 12 pulses in the proximal left
circumflex artery. We subsequently dilated the lesion further using a 3.0 x 12 mm NC Euphora balloon at 14 bernard with good expansion at this time. However we did note that the ostial OM1 stenosis appeared to be worsened at about 90% now. We decided
to proceed with intervention with a stent extending from proximal left circumflex into OM1 to cover both of those lesions. We predilated the ostium of OM1 with a 2.75 x 15 mm semicompliant balloon and achieve full expansion. We subsequently
stented the area with a 2.75 x 22 mm Medtronic Carlos drug-eluting stent with a stent extending from proximal circumflex into proximal portion of OM 1. We tried to bring in a IVUS [place] eye catheter however could only advance it until the crux at the
takeoff of OM1. Based on IVUS measurement at least in the proximal circumflex we decided to postdilated the OM1 stent with a 2.75 x 15 mm NC Euphora balloon at 18 bernard distally and 22 bernard proximally. Based on IVUS imaging we dilated the portion in
the proximal left circumflex artery with 3.25 x 8 mm NC Euphora balloon at 14 bernard with an excellent angiographic and IVUS based result. We tried to introduce the IVUS catheter again however given the bend at the angle of OM1 takeoff we could not
advance it past the proximal left circumflex. We decided to attempt intervention to OM 2 which was diffusely diseased. We performed a kissing balloon to try and open up the stent struts from proximal left circumflex into the mid left circumflex
using a 2.0 x 15 mm semicompliant balloon and performed kissing balloon with a 2.75 x 15 mm Euphora balloon in the OM1 vessel. Despite this we could not advance any balloons into the OM 2. We further performed another balloon to open up the
proximal circumflex stent struts using a 2.5 x 12 mm semicompliant Euphora balloon at low pressures however despite this we could not advance anything into OM 2 given it has been jailed with a new stent now and a second layer of previously placed
mid left circumflex into OM 3 stent. Given the diffuse disease appeared unchanged with stable flow, we decided to abort any further attempts. Patient remained chest pain-free and tolerated the procedure well with no acute complications.
SEDATION: 147 minutes of procedural sedation was utilized. An independent medical transcriber was present to assist with and help manage the patient's level of consciousness and physiologic status.
RADIATION SUMMARY: Fluoro Time (min): 26.8, Dose (mGy): 3198, DAP (Gy.cm2) : 127
Closure Device: Vascular band over right radial artery, 10 cc of air
CONCLUSIONS
1. Successful percutaneous intervention of a 80 to 85% heavily calcified proximal left circumflex and a 85 to 90% ostial left circumflex flex stenosis with one 2.75 x 22 mm Medtronic Carlos drug-eluting stent post IV L shockwave atherectomy,
postdilated using IVUS guidance with a 2.75 x 15 mm NC balloon at 18 bernard distally and a 3.25 x 8 mm NC balloon at 16 bernard proximally with an excellent angiographic result.
2. Elevated LVEDP at 24 mmHg.
RECOMMENDATIONS
1. Uninterrupted dual antiplatelet therapy with daily baby aspirin and Plavix 75 mg along with optimal lipid control and optimization of antianginal medications.
2. Wean radioman per protocol.
3. Aggressive management of cardiovascular risk factors.
4. Referral for outpatient cardiac rehab.
5. Discussed with outpatient automotive worker given need for possible hysterectomy in the near future, to trial pushing through uninterrupted dual antiplatelet therapy for at least 3 to 6 months depending on how she is doing clinically with plan to
hold Plavix periprocedurally and to resume afterwards to complete 1 year as tolerated.
Copy to: aV Cohen MD
Mary Mann MD, [facility], [facility]
[2025-02-05] MEDS: NOVOLOG FLEXPEN-MODERATE RESISTANCE 1 UNITS SC (19:10)
[2025-02-05] MEDS: NOVOLOG FLEXPEN 22 UNITS SC (19:11)
--- NOTE | 2025-02-05 19:32 | PTCARENOTE ---
Pt received post cardiac cath done via right radial artery. Radial band removed per protocol without problem, no sign of bleeding or hematoma, pt aware of activity restrictions. Pt denies any discomfort. Pt voiding without difficulty, she reports
some vaginal bleeding (awaiting surgery for this issue). Telemetry shows sinus rhythm.
[2025-02-05] MEDS: COZAAR 50 MG PO (20:18)
[2025-02-05] MEDS: COREG 6.25 MG PO (20:19)
--- NOTE | 2025-02-05 20:45 | PTCARENOTE ---
Received pt @ change of shift. AAOx3. VSS. Right radial site clean, dry, and intact. Soft to the touch, no ecchymosis. Discussed plan of care for evening and morning. Pt verbalized understanding. Call barragan within reach.
[2025-02-05 22:18] LABS: Glucose - Point of Care 92 mg/dl (70-99)
[2025-02-05] MEDS: PROTONIX 40 MG PO (22:19)
[2025-02-05] MEDS: MACROBID 100 MG PO (22:19)
[2025-02-05] MEDS: LANTUS SC (22:21)
--- NOTE | 2025-02-05 23:08 | PTCARENOTE ---
Addendum entered by Katarina Arevalo RN 02/05/25 23:35:
Discussed with pt about holding her Lantis because of her blood sugar. Pt agreed to holding it stating 'that is really low for me, and from experience, it will only go lower tonight.' Pt requested apple juice to keep bedside in case it drops lower.
Original Note:
Pt's blood sugar was 92 @HS. Reached out to Alejandra Mejía NP. Told to hold 45 units of Lantis-- see MAR
[2025-02-06] VITALS (12 sets, daily range): BP systolic 92–154; BP diastolic 39–67; BMI 52.6
[2025-02-06 05:17] LABS: Hematocrit 35.1 % (37.0-47.0); Hemoglobin 10.7 g/dL (12.0-16.0); Mean Corp Hgb Conc. 30.5 g/dL (33.0-37.0); Mean Corpuscular Volume 78.7 fL (81.0-99.0); Mean Platelet Volume 9.4 fL (7.4-10.4); Platelet Count 274 10^3/uL (130-400); Red Blood Cell Count 4.46 10^6/uL (4.20-5.40); White Blood Cell Count 8.3 10^3/uL (4.8-10.8)
[2025-02-06 05:53] LABS: Blood Urea Nitrogen 13 mg/dl (7-17); Carbon Dioxide 24 mmol/L (22-30); Chloride 106 mmol/L (98-107); Estimated Creatinine Clearance 103 ml/min; Glucose 132 mg/dl (70-99); HDL Cholesterol 45 mg/dl; LDL Cholesterol, Calculated 27 mg/dl; Potassium 4.3 mmol/L (3.5-5.1); Sodium 139 mmol/L (135-145); Total Cholesterol 96 mg/dl (50-199); Triglyceride 123 mg/dl (10-149); Very Low Density Lipoprotein 24 mg/dl (0-30); eGFR > 60.00
[2025-02-06] MEDS: SYNTHROID 125 MCG PO (08:30)
[2025-02-06 08:33] LABS: Glucose - Point of Care 155 mg/dl (70-99)
[2025-02-06] MEDS: PLAVIX 75 MG PO (09:36)
[2025-02-06] MEDS: ZETIA 10 MG PO (09:36)
[2025-02-06] MEDS: DETROL LA 4 MG PO (09:36)
[2025-02-06] MEDS: PROVERA 10 MG PO ×3 (09:36→22:31)
[2025-02-06] MEDS: NEURONTIN 200 MG PO ×3 (09:36→22:31)
[2025-02-06] MEDS: JANUVIA 100 MG PO (09:36)
[2025-02-06] MEDS: COREG 6.25 MG PO ×2 (09:37→20:40)
[2025-02-06] MEDS: LASIX 20 MG PO (09:37)
[2025-02-06] MEDS: ZYLOPRIM 300 MG PO (09:37)
[2025-02-06] MEDS: COZAAR 50 MG PO ×2 (09:37→20:30)
[2025-02-06] MEDS: LOW STRENGTH ASPIRIN 81 MG PO (09:37)
[2025-02-06] MEDS: NOVOLOG FLEXPEN-MODERATE RESISTANCE 1 UNITS SC (09:45)
[2025-02-06] MEDS: NOVOLOG FLEXPEN 22 UNITS SC ×3 (09:45→18:30)
[2025-02-06 09:48] LABS: Glycohemoglobin (HgbA1c) 10.3 % (4.0-5.6)
--- NOTE | 2025-02-06 09:54 | W.PN.CARDCBS ---
Addendum entered and electronically signed by Mary Mann MD 02/07/25 00:06:
I saw and examined the patient.
The Aemt's note was reviewed and I agree with the note.
Comment: Overall pt did well overnight. This AM after walking with RN, she developed 4/10 CP though she tells me that she hasnt walked this far in a long time. Hgb stable at 10.7.
On exam, patient is morbidly obese, in bed post SL nitro in NAD, A+Ox 2, RR, normal S1 and S2. No issues at right radial access site, no hematoma or bruit, abd soft, NT, ND +BS, warm ext, 2+ BLE pitting edema.
Cath: 02/05/25: Successful percutaneous intervention of a 80 to 85% heavily calcified proximal left circumflex and a 85 to 90% ostial left circumflex flex stenosis with one 2.75 x 22 mm Medtronic Carlos drug-eluting stent post IV L shockwave
atherectomy, postdilated using IVUS guidance with a 2.75 x 15 mm NC balloon at 18 bernard distally and a 3.25 x 8 mm NC balloon at 16 bernard proximally with an excellent angiographic result.
iFR positive of OM1 and OM 2.
Plan:
1. DAPT with ASA and plavix, close monitoring of Hgb, LDL goal < 55, BB as tolerated and uptitrate antianginal as hemodynamics will allow. Cont coreg 6.25mg bid fo rnow given normal BPs. REsume home imdur. SL nitro given post walk.
2. Aggressive management of CV risk factors.
3. IV diuresis with close monitoring or renal fxn and lytes.
4. Cont oob to chair/ambulate. Anticipate DC home in 24hrs.
5. Educated regarding high fiber mediterranean diet and increasing activity as tolerated focusing on weigh loss.
6. Cardiac rehab referral discussed and encouraged as outpt.
[facility]
Mary Mann MD
Total time spent: 52mins
Original Note:
Today's Communication / Plan
-
stable for d/c home
Impression / Plan
-
PCP: Dr. Armstrong
CDY: Va Cohen MD
Impression:
Chest pain/Abnormal NST
CAD post lithotripsy, PCI LCx x 1 JOSE D 02/05/25
Prior PCI LAD, LCX, OM3 2019
HTN
HLD
DM2
COPD
GERD/HH
FENG
Hypothyroidism
Gout
Chronic lymphedema
Morbid obesity BMI 52.6
Uterine hyperplasia
CONCLUSIONS
1. Successful percutaneous intervention of a 80 to 85% heavily calcified proximal left circumflex and a 85 to 90% ostial left circumflex flex stenosis with one 2.75 x 22 mm Medtronic Carlos drug-eluting stent post IV L shockwave atherectomy,
postdilated using IVUS guidance with a 2.75 x 15 mm NC balloon at 18 bernard distally and a 3.25 x 8 mm NC balloon at 16 bernard proximally with an excellent angiographic result.
Plan:
She was preop w/u for ELIZABETH for uterine hyperplasia, had abnormal NST and chest pains
post PCI and shockwave prox LCx into OM1 x 1 JOSE D
denies cp, tele SR no ectopy
DAPT ASA/Plavix uninterrupted for at least 3-6 mo depending on how she is clinically, then post ELIZABETH will need to resume DAPT for 1 year
LDL 27 continue zetia and Praluent
continue losartan and carvedilol
Hbg A1c 10.3%, needs tighter control and wt loss encouraged
cardiac rehab c/s
f/u Dr. Cohen 2-4 weeks
home today
Progress Note - Body And Fender Worker
Subjective
Date of Service: February 06, 2025
denies cp, sob
Objective
Labs:
02/06/25 04:47
02/06/25 04:47
Labs
Hgb 10.7 g/dL (12.0-16.0) L 02/06/25 04:47
Hct 35.1 % (37.0-47.0) L 02/06/25 04:47
Plt Count 274 10^3/uL (130-400) 02/06/25 04:47
Sodium 139 mmol/L (135-145) 02/06/25 04:47
Potassium 4.3 mmol/L (3.5-5.1) 02/06/25 04:47
BUN 13 mg/dl (7-17) 02/06/25 04:47
Creatinine 0.8 mg/dL (0.6-1.0) 02/06/25 04:47
Glucose 132 mg/dl (70-99) H 02/06/25 04:47
Vital Signs and I&O:
Vital Signs
Temp Pulse Resp BP Pulse Ox
99.2 F 76 20 137/67 96
02/06/25 07:51 02/06/25 09:34 02/06/25 07:51 02/06/25 09:34 02/06/25 09:48
Vital Signs
Temp Pulse Resp BP Pulse Ox
99.2 F 76 20 137/67 96
02/06/25 07:51 02/06/25 09:34 02/06/25 07:51 02/06/25 09:34 02/06/25 09:48
Physical Exam
Physical Exam
NAD< AOX3
S1, S2, RRR
CTAB< non labored, no wheeze
SNTND Bsx4
R rad site c/d/i no HT, good pulse
[2025-02-06] MEDS: NITROSTAT (SUBLINGUAL) 0.4 MG SL (10:55)
[2025-02-06] MEDS: IMDUR (EXTENDED RELEASE) 60 MG PO (11:14)
[2025-02-06] MEDS: LASIX 40 MG IV ×2 (11:15→16:08)
--- NOTE | 2025-02-06 11:35 | W.PN.UPDATE ---
Update Note
Progress Note Update
CTSP after walking hallways she developed 4/10 chest pain radiating to her left shoulder and jaw. She was given nitro sl and after 10min resting pain resolved. She was taking isosorbide 60mg at home which was not on her med rec and we will resume.
Her filling pressures were elevated LVEDP 24 and we will treat with lasix 40mg iv now. Her bp was low after the nitro but if improved later we will try to titrate her carvedilol for better anginal effect. We will continue to monitor closely and
possibly watch overnight. Dr. Herrera aware and agrees with plan.
[2025-02-06 12:02] LABS: Glucose - Point of Care 241 mg/dl (70-99)
--- NOTE | 2025-02-06 12:08 | CM ---
CM following for DC planning needs.
DC plan remains for home without needs.
CM to follow.
--- NOTE | 2025-02-06 12:13 | PTCARENOTE ---
Pt walked with RN at a slow pace around unit, at the end of the walk she reported 4/10 left chest discomfort, BP 149/43, O2 sat 99%. notified, pt then reported discomfort was going into her left jaw and left arm. Pt given one SL
nitroglycerin @10:55, BP at 10:57 92/39. Pt reported discomfort was completely relieved by 11:12. Pt seen by Maylin Clemons NP. Pt given imdur and IV lasix.
[2025-02-06] MEDS: NOVOLOG FLEXPEN-MODERATE RESISTANCE 3 UNITS SC (14:07)
[2025-02-06 17:26] LABS: Glucose - Point of Care 146 mg/dl (70-99)
[2025-02-06] MEDS: NOVOLOG FLEXPEN-MODERATE RESISTANCE SC (18:30)
--- NOTE | 2025-02-06 19:33 | PTCARENOTE ---
No further chest discomfort during the afternoon. Pt reluctant to take additional carvedilol at this time.
--- NOTE | 2025-02-06 21:41 | PTCARENOTE ---
Received pt @ change of shift. AAOx3. VSS. Right radial site clean, dry, and intact. No ecchymosis, swelling, or firmness. Denies chest pain @ this time. Pt notified RN of lump found in left breast. Lump is palpable, slightly tender, no ecchymosis.
Discussed informing doctor in the morning, but to notify nurse with any changes. Discussed plan of care for evening. Pt verbalizes understanding. Call barragan within reach.
[2025-02-06 21:44] LABS: Glucose - Point of Care 181 mg/dl (70-99)
[2025-02-06] MEDS: MACROBID 100 MG PO (22:31)
[2025-02-06] MEDS: PROTONIX 40 MG PO (22:31)
[2025-02-06] MEDS: LANTUS 0.45 UNITS SC (22:33)
[2025-02-07 04:02] VITALS: BP 148/57
[2025-02-07 04:07] VITALS: BMI 52.3
[2025-02-07 04:34] LABS: Hematocrit 33.2 % (37.0-47.0); Hemoglobin 10.3 g/dL (12.0-16.0); Mean Corpuscular Hgb 24.3 pg (27.0-31.0); Mean Corpuscular Volume 78.5 fL (81.0-99.0); Mean Platelet Volume 9.5 fL (7.4-10.4); Platelet Count 271 10^3/uL (130-400); Red Blood Cell Count 4.23 10^6/uL (4.20-5.40); White Blood Cell Count 8.3 10^3/uL (4.8-10.8)
[2025-02-07 05:05] LABS: Blood Urea Nitrogen 17 mg/dl (7-17); Carbon Dioxide 22 mmol/L (22-30); Chloride 106 mmol/L (98-107); Estimated Creatinine Clearance 92 ml/min; Glucose 133 mg/dl (70-99); Magnesium 1.6 mg/dl (1.6-2.3); Sodium 138 mmol/L (135-145); eGFR > 60.00
[2025-02-07 08:01] VITALS: BP 131/50
[2025-02-07 08:06] LABS: Glucose - Point of Care 122 mg/dl (70-99)
--- NOTE | 2025-02-07 08:15 | W.PN.CARDCBS ---
Addendum entered and electronically signed by Sudeep Sutton MD 02/07/25 14:10:
I saw and examined the patient.
The Channel Cementer Outsole Machine's note was reviewed and I agree with the note.
Comment: Briefly, 64-year-old woman past medical history multivessel CAD presenting with NSTEMI and underwent PCI of the left circumflex on 02/05/2025
Resting comfortably out of bed to chair this morning
No further chest discomfort since resuming her home antianginal medications
Maintaining sinus rhythm on telemetry
Continue medical management of CAD with aspirin/Plavix/Praluent/Zetia/Coreg/Imdur
Stable for discharge from my perspective. She will follow-up with her primary professional volleyball player at [facility].
Original Note:
Today's Communication / Plan
-
-stable from CV standpoint for d/c. No recurrent CP
-on uptitrated doses Lasix and Coreg
-f/u Dr Parry, primary cards
Impression / Plan
-
PCP: Dr. Armstrong
CDY: Va Cohen MD
Impression:
Chest pain/Abnormal NST
CAD post lithotripsy, PCI LCx x 1 JOSE D 02/05/25
Prior PCI LAD, LCX, OM3 2019
HTN
HLD
DM2
COPD
GERD/HH
FENG
Hypothyroidism
Gout
Chronic lymphedema
Morbid obesity BMI 52.6
Uterine hyperplasia
CONCLUSIONS
1. Successful percutaneous intervention of a 80 to 85% heavily calcified proximal left circumflex and a 85 to 90% ostial left circumflex flex stenosis with one 2.75 x 22 mm Medtronic Carlos drug-eluting stent post IV L shockwave atherectomy,
postdilated using IVUS guidance with a 2.75 x 15 mm NC balloon at 18 bernard distally and a 3.25 x 8 mm NC balloon at 16 bernard proximally with an excellent angiographic result.
Plan:
She was preop w/u for ELIZABETH for uterine hyperplasia, had abnormal NST and chest pains
post PCI and shockwave prox LCx into OM1 x 1 JOSE D 02/05/2025
-Had 4 out of 10 chest pain rad to left shoulder when walking in hallway on 02/06/2025. Patient given sublingual nitro x 1 with resolution of pain. Resumed on her usual isosorbide 60 mg daily.
- Received 1 dose of IV Lasix for LVEDP 24 on cath.
-outpt Lasix uptitrated to 40 mg BID
-Coreg increased to 12.5 mg bid for better anginal effect.
-Telemetry personally reviewed: Normal sinus rhythm 70s to 80s, PVCs
DAPT ASA/Plavix uninterrupted for at least 3-6 mo depending on how she is clinically, then post ELIZABETH will need to resume DAPT for 1 year
LDL 27 continue zetia and Praluent
continue losartan and carvedilol
Hbg A1c 10.3%, needs tighter control and wt loss encouraged
cardiac rehab c/s
f/u Dr. Reynoso Why 2-4 weeks
Regarding left breast lump, palpable at left sternal border under left breast with patient in supine position. Patient reports she had mammogram about 6 weeks ago and was normal. Advise she follow-up with PCP
-home today
Progress Note - Cash Clerk
Subjective
Date of Service: February 07, 2025
No recurrent chest pain
Noticed lump on left breast last night, sore with palpation
Objective
Labs:
02/07/25 04:05
02/07/25 04:05
Labs
Hgb 10.3 g/dL (12.0-16.0) L 02/07/25 04:05
Hct 33.2 % (37.0-47.0) L 02/07/25 04:05
Plt Count 271 10^3/uL (130-400) 02/07/25 04:05
Sodium 138 mmol/L (135-145) 02/07/25 04:05
Potassium 4.0 mmol/L (3.5-5.1) 02/07/25 04:05
BUN 17 mg/dl (7-17) 02/07/25 04:05
Creatinine 0.9 mg/dL (0.6-1.0) 02/07/25 04:05
Glucose 133 mg/dl (70-99) H 02/07/25 04:05
Vital Signs and I&O:
Vital Signs
Temp Pulse Resp BP Pulse Ox
98.2 F 81 18 148/57 98
02/07/25 07:59 02/07/25 04:15 02/07/25 07:59 02/07/25 04:02 02/07/25 07:59
Vital Signs
Temp Pulse Resp BP Pulse Ox
98.2 F 81 18 148/57 98
02/07/25 07:59 02/07/25 04:15 02/07/25 07:59 02/07/25 04:02 02/07/25 07:59
Physical Exam
Physical Exam
GEN: No distress, awake, Ox3
HEENT: supple, anicteric, mmm
LUNGS: CTA, no wheezes/rales
CV: Reg, S1/S2, 2/6 systolic murmur
ABD: soft, BS+, NT/ND
EXT: 1+ B/L LE edema (pt reports h/o chronic lymphedema
NEURO: Gross non-focal
SKIN: No rash,
Breast: L: irreg lump palpable at left sternal border under left breast with patient in supine position
[2025-02-07] MEDS: SYNTHROID 125 MCG PO (08:58)
[2025-02-07] MEDS: NOVOLOG FLEXPEN-MODERATE RESISTANCE SC (10:04)
[2025-02-07] MEDS: NOVOLOG FLEXPEN 22 UNITS SC (10:08)
[2025-02-07] MEDS: JANUVIA 100 MG PO (10:09)
[2025-02-07] MEDS: COREG 6.25 MG PO (10:09)
[2025-02-07] MEDS: IMDUR (EXTENDED RELEASE) 60 MG PO (10:09)
[2025-02-07] MEDS: NEURONTIN 200 MG PO (10:09)
[2025-02-07] MEDS: LOW STRENGTH ASPIRIN 81 MG PO (10:09)
[2025-02-07] MEDS: COZAAR 50 MG PO (10:09)
[2025-02-07] MEDS: DETROL LA 4 MG PO (10:10)
[2025-02-07] MEDS: ZYLOPRIM 300 MG PO (10:10)
[2025-02-07] MEDS: LASIX 40 MG IV (10:10)
[2025-02-07] MEDS: PLAVIX 75 MG PO (10:10)
[2025-02-07] MEDS: ZETIA 10 MG PO (10:10)
[2025-02-07] MEDS: PROVERA 10 MG PO (10:10)
--- NOTE | 2025-02-07 10:23 | W.PN.UPDATE ---
Update Note
Progress Note Update
Spoke with nurse, patient concerned about side effects with taking carvedilol 12.5 mg twice daily. Said she can start with splitting the pill in half and take 6.25 mg twice daily. Should follow-up with primary salt cutter within 1 week.
--- NOTE | 2025-02-07 10:28 | W.DS.TRANS ---
DC Summary - Purchasing Specialist
-
Discharge Instructions:
Sleep Apnea Risk High
Discharge Diagnosis/Procedures Angioplasty, lithotripsy and stent to obtuse
marginal artery
Diet Low Cholesterol,Diabetic, Carb Controlled,2 Gram
Sodium
Driving Restrictions No driving for 24 hours
Blood Work Check CBC, BMP in 1 week
Other Services Cardiac Rehab
Specialty Instructions Weigh Daily
Instructions:
Stand-Alone Forms: DC Instructions- Cath/EP Lab
Changes to Home Medications: Yes
Discharge Medications:
DC Medications w/original date entered in [facility]
cetirizine 10 mg tablet 10 mg PO DAILY Allergies 10/11/09
allopurinol 300 mg tablet 300 mg PO DAILY Gout 09/26/20
cholecalciferol (vitamin D3) 25 mcg (1,000 unit) capsule (Vitamin D3) 50,000 unit PO WE Supplement 09/26/20
gabapentin 100 mg capsule 200 mg PO TID 09/26/20
aspirin 81 mg chewable tablet 81 mg PO DAILY 09/29/20
albuterol sulfate 90 mcg/actuation aerosol inhaler (Ventolin HFA) 2 puff inhalation Q4HPRN PRN sob 04/03/21
ezetimibe 10 mg tablet 10 mg PO DAILY High cholesterol 04/05/21
insulin aspart U-100 100 unit/mL subcutaneous solution (Novolog U-100 Insulin aspart) 22 units SC AC Diabetes 05/04/21
levothyroxine 125 mcg tablet 125 mcg PO DAILY AT 0700 Thyroid 05/09/21
alirocumab 150 mg/mL subcutaneous pen injector (Praluent Pen) 150 mg SC Q14D 09/19/24
fluticasone furoate 200 mcg-vilanterol 25 mcg/dose inhalation powder (Breo Ellipta) 1 inh inhalation DAILY 09/19/24
mirabegron 50 mg tablet,extended release 24 hr (Myrbetriq) 50 mg PO DAILY 09/19/24
nitrofurantoin 100 mg capsule 100 mg PO .1900 09/19/24
vitamin E 400 unit tablet 400 unit PO DAILY 09/19/24
cyclobenzaprine 10 mg tablet 10 mg PO TID PRN muscle spasms 02/03/25
ferrous sulfate 325 mg (65 mg iron) tablet 325 mg PO DAILY 02/03/25
hydrocodone 7.5 mg-acetaminophen 300 mg tablet 1 tab PO Q6H PRN bone pain 02/03/25
insulin degludec 100 unit/mL (3 mL) subcutaneous pen (Tresiba FlexTouch U-100 insulin) 45 unit SC HS 02/03/25
losartan 50 mg tablet (Cozaar) 50 mg PO BID 02/03/25
medroxyprogesterone 10 mg tablet (Provera) 10 mg PO TID 02/03/25
nitroglycerin 0.4 mg sublingual tablet 0.4 mg sublingual Q5-15M PRN chest pain 02/03/25
pantoprazole 40 mg tablet,delayed release 40 mg PO HS 02/03/25
sitagliptin phosphate 100 mg tablet (Januvia) 100 mg PO DAILY 02/03/25
carvedilol 12.5 mg tablet 12.5 mg PO BID #60 tabs 02/06/25
clopidogrel 75 mg tablet 75 mg PO DAILY #90 tabs 02/06/25
furosemide 40 mg tablet (Lasix) 40 mg PO BID #0 tabs 02/06/25
isosorbide mononitrate 60 mg tablet,extended release 24 hr 60 mg PO DAILY 02/06/25
Home Medication Changes
-Increase Lasix to 40 mg twice daily
-Start clopidogrel 75 mg daily
-Increase carvedilol to 12.5 mg twice daily. You may start with taking 1/2 pill or 6.25 mg twice daily, then increase to 12.5 mg twice daily after 1 week if tolerating.
Pending Results: No
Total time spent discharging patient (in min): 20
[2025-02-07 12:00] VITALS: BP 143/67
[2025-02-09 08:49] LABS: ACT-LR - POC 268 Seconds (116-155)
[2025-02-09 08:49] LABS: ACT-LR - POC 263 Seconds (116-155)
[2025-02-09 08:49] LABS: ACT-LR - POC 277 Seconds (116-155)
[2025-02-09 08:49] LABS: ACT-LR - POC 313 Seconds (116-155)
[2025-02-09 08:49] LABS: ACT-LR - POC 339 Seconds (116-155)
[2025-02-09 08:49] LABS: ACT-LR - POC 300 Seconds (116-155)
--- NOTE | 2025-03-13 14:35 | CON.CAR ---
Addendum entered and electronically signed by Mary Mann MD 03/13/25 19:59:
I saw and examined the patient.
The C D Still Operator's note was reviewed and I agree with the note.
Comment: Patient is well-known to me from recent admission where she underwent a complex PCI to left circumflex/OM1. Briefly, Radha is a 64-year-old female morbidly obese with past medical history of hypertension, hyperlipidemia, type 2 diabetes
mellitus, COPD, GERD, uterine hyperplasia, chronic pain syndrome, fibromyalgia, hypothyroidism, coronary artery disease with prior stents to LAD, left circumflex/OM 3 in 2019, most recently with shockwave and PCI to the left circumflex with a 2.75 x
22 mm Medtronic Carlos drug-eluting stent on February 05, 2025 on dual antiplatelet therapy who presents from cardiac rehab with main complaints of exertional lightheadedness/dizziness even to the point of presyncope without actual LOC and ongoing
episodes of exertional chest tightness. To me she described that her exertional dizziness is what has been the major limiting factor. She tells me that her heart failure symptoms were better and she is now able to lay flat unlike before after
recent PCI and diuresis. She tells me overall her exertional chest discomfort has been stable over the last few months. She has not yet officially started cardiac rehab but was supposed to today however given her symptoms she presented there to
discuss and was directed to the emergency room. She did reach out to her outpatient cardiology office as well and her outpatient appointment was moved up but given her symptoms she was directed to the emergency room for further workup. She herself
was not taking the higher dose of the Lasix given the dizziness and has been taking 40 mg in the morning and 20 mg in the afternoon.
On exam patient is morbidly obese, otherwise well-appearing, no acute distress, pleasant, awake, alert and oriented x 3, regular rate, normal S1 and S2, distant heart sounds, no obvious murmurs, rubs or gallops, lungs are clear to auscultation
bilaterally, abdomen is obese but otherwise soft, nontender, nondistended with active bowel sounds, warm extremities without significant edema.
Troponin has been negative x 2. ECG with no acute ischemic changes.
Recommendations:
1. Continue to monitor on telemetry and trend troponins and EKGs.
2. Strongly recommend checking orthostatic vital signs including ambulatory pulse ox and ambulatory blood pressures if need be depending on what orthostatic vital signs are like.
3. On exam patient does not appear to be dehydrated and her vital signs suggest hypertension and therefore to optimize antianginal therapy we will for now increase her carvedilol to 25 mg twice daily with hopes to potentially increase her Imdur to
60 mg twice daily if need be over the weekend if her exertional chest discomfort is persistent.
4. I reviewed her most recent heart catheterization in extensive detail. An excellent result was obtained at the end treating the proximal left circumflex into ostial OM1. OM 2 is a small caliber vessel with diffuse atherosclerotic plaque and has
been jailed by 2 prior stents and therefore would be extremely challenging in terms of percutaneous intervention. More importantly, it is a very small territory given small caliber vessel and therefore I am not even sure if it is truly contributing
to ongoing symptoms to consider such an endeavor.
5. If troponins stay negative, I would favor strongly to medically manage and also rule out noncardiac causes for chest tightness as I strongly believe there is a component of noncardiac chest pain. Her coronary anatomy certainly does not explain
her exertional dizziness and therefore defer to primary team to further work this up.
6. Of note, she has had on and off dysfunctional uterine bleeding however her hemoglobin and hematocrit are close to baseline and therefore I do not believe her symptoms are due to symptomatic new anemia or blood loss anemia.
7. We will check echocardiogram to assess biventricular function.
Discussed all of the above in extensive detail with patient and outpatient die machine operator, Dr. Cohen, who is in agreement
Mary Mann MD, [facility]
Original Note:
Consultation
Consultation Request
Date/Time Consultation Requested: 03/13/2025, 1400
Date/Time Consultation Performed: 03/13/2025, 1435
Requesting Provider: Dr Sanchez
Performing Provider: ZULEMA Vallecillo for Dr Camille Schneider
Reason for Consultation: chest tightness
Medical History
-
Chief Complaint: Chest tightness
History of Present Illness:
64-year-old female with history of coronary artery disease with PCI in 2019 of the LAD, left circumflex, and OM 3, and most recently percutaneous intervention of an 80 to 85% heavily calcified proximal left circumflex and an 85 to 90% ostial left
circumflex flex stenosis with 1 Medtronic [place] drug-eluting stent, post IV shockwave atherectomy, postdilated using IVUS guidance with balloon distally and proximally (02/06/2025). LVEDP 24. Cath did show residual OM 2 stenosis which was IFR
positive, medical management was advised. She was started on dual antiplatelet therapy with aspirin and Plavix, carvedilol was uptitrated to 12.5 mg twice daily, she was continued on isosorbide and Lasix uptitrated for elevated LVEDP. Had one
episode of chest pain while walking in hallway after cath, relieved with SL NTG. She was admitted and observed overnight with no recurrent symptoms.
Discharged with plan for cardiac rehab and follow-up with her outpatient die machine operator Dr. Parry.
Since discharge, patient reports she has felt better in that she no longer has orthopnea but she continues to have exertional chest tightness radiating to the left arm with associated shortness of breath, dizziness, and occasional nausea. Symptoms
occur with minimal exertion such as walking to mailbox. She has felt more tired. Today was her first day of cardiac rehab and as she was describing her symptoms it was decided to refer her back to the ED for evaluation.
ED evaluation: Troponin less than 0.012 x 1.
EKG: Normal sinus rhythm no ST -T wave abnormality, cannot rule out old inferior IA, no change from prior tracing 02/06/2025
Of note, patient was undergoing preop workup for uterine hyperplasia requiring abdominal hysterectomy. For preop clearance, she reported chest discomfort and underwent a nuclear stress test which was positive, prompting above cath.
PMH:
CAD s/p lithotripsy and PCI to the left circumflex with 2.75x 22 mm Medtronic Carlos drug-eluting stent on 02/05/2025.
Prior PCI LAD, LCIRC, OM3 in 2019
IFR positive obtuse marignal, treated medically
HTN
Hyperlipidemia.
Diabetes mellitus, type 2.
COPD
Gastroesophageal reflux disease, hiatal hernia.
Nonalcoholic steatohepatitis.
Hypothyroidism.
Gout.
Chronic lymphedema.
Morbid obesity with a body mass index of 52.6.
Uterine hyperplasia
Cholecystitis status postcholecystectomy in 2020
Past Medical History
Past Medical History: Other (as above)
Past Surgical History: Cholecystectomy (2020)
Allergies / Home Medications
Allergy/AdvReac Type Severity Reaction Status Date / Time
ampicillin (Ampicillin) Allergy 30 yrs ago Verified 03/13/25 11:01
delayed
Rash
Calcium Channel Blocking Allergy Swelling, Verified 03/13/25 11:01
Agent Dilt (Calcium Channel Redness,
Blocking Agents-Law) Tachycardia
cefprozil (From Cefzil) Allergy 30 yrs ago Verified 03/13/25 11:01
delayed
rash
labetalol HCl (From Trandate) Allergy hallucinati Verified 03/13/25 11:01
ons
latex (Latex) Allergy Rash, Verified 03/13/25 11:01
Welts,
Blistering
levofloxacin (From Levaquin) Allergy Ruptured Verified 03/13/25 11:01
Tendons
Environmental Allergy Sneezing Uncoded 03/13/25 11:01
humalog Allergy welts Uncoded 03/13/25 11:01
�Medication �Instructions �Recorded �Confirmed �Type
cetirizine 10 mg tablet 10 mg PO DAILY Allergies 10/11/09 02/05/25 History
allopurinol 300 mg tablet 300 mg PO DAILY Gout 09/26/20 02/05/25 History
cholecalciferol (vitamin D3) 25 50,000 unit PO WE Supplement 09/26/20 02/05/25 History
mcg (1,000 unit) capsule (Vitamin
D3)
gabapentin 100 mg capsule 200 mg PO TID 09/26/20 02/05/25 History
aspirin 81 mg chewable tablet 81 mg PO DAILY 09/29/20 02/05/25 Rx
albuterol sulfate 90 mcg/actuation 2 puff inhalation Q4HPRN PRN sob 04/03/21 02/05/25 History
aerosol inhaler (Ventolin HFA)
ezetimibe 10 mg tablet 10 mg PO DAILY High cholesterol 04/05/21 02/05/25 History
insulin aspart U-100 100 unit/mL 22 units SC AC Diabetes 05/04/21 02/05/25 History
subcutaneous solution (Novolog
U-100 Insulin aspart)
levothyroxine 125 mcg tablet 125 mcg PO DAILY AT 0700 Thyroid 05/09/21 02/05/25 History
alirocumab 150 mg/mL subcutaneous 150 mg SC Q14D 09/19/24 02/05/25 History
pen injector (Praluent Pen)
fluticasone furoate 200 1 inh inhalation DAILY 09/19/24 02/05/25 History
mcg-vilanterol 25 mcg/dose
inhalation powder (Breo Ellipta)
mirabegron 50 mg tablet,extended 50 mg PO DAILY 09/19/24 02/05/25 History
release 24 hr (Myrbetriq)
nitrofurantoin 100 mg capsule 100 mg PO .1900 09/19/24 02/05/25 History
vitamin E 400 unit tablet 400 unit PO DAILY 09/19/24 02/05/25 History
cyclobenzaprine 10 mg tablet 10 mg PO TID PRN muscle spasms 02/03/25 02/05/25 History
ferrous sulfate 325 mg (65 mg 325 mg PO DAILY 02/03/25 02/05/25 History
iron) tablet
hydrocodone 7.5 mg-acetaminophen 1 tab PO Q6H PRN bone pain 02/03/25 02/03/25 History
300 mg tablet
insulin degludec 100 unit/mL (3 45 unit SC HS 02/03/25 02/05/25 History
mL) subcutaneous pen (Tresiba
FlexTouch U-100 insulin)
losartan 50 mg tablet (Cozaar) 50 mg PO BID 02/03/25 02/05/25 History
medroxyprogesterone 10 mg tablet 10 mg PO TID 02/03/25 02/05/25 History
(Provera)
nitroglycerin 0.4 mg sublingual 0.4 mg sublingual Q5-15M PRN chest 02/03/25 02/03/25 History
tablet pain
pantoprazole 40 mg tablet,delayed 40 mg PO HS 02/03/25 02/05/25 History
release
sitagliptin phosphate 100 mg 100 mg PO DAILY 02/03/25 02/05/25 History
tablet (Januvia)
carvedilol 12.5 mg tablet 12.5 mg PO BID #60 tabs 02/06/25 Rx
clopidogrel 75 mg tablet 75 mg PO DAILY #90 tabs 02/06/25 Rx
furosemide 40 mg tablet (Lasix) 40 mg PO BID #0 tabs 02/06/25 02/05/25 Rx
isosorbide mononitrate 60 mg 60 mg PO DAILY 02/06/25 02/06/25 History
tablet,extended release 24 hr
Review of Systems
-
History Source: Patient
All other systems: Negative unless noted
Physical Exam
Vital Signs
Temp Pulse Resp BP Pulse Ox
98.3 F 75 18 143/67 98
02/07/25 12:00 02/07/25 10:45 02/07/25 12:00 02/07/25 12:00 02/07/25 12:00
Lab Results
02/07/25 04:05
02/07/25 04:05
GEN: No distress, awake, Ox3
HEENT: supple, anicteric, mmm
LUNGS: CTA, no wheezes/rales
CV: Reg, S1/S2, 2/6 syst LSB
ABD: soft, BS+, NT/ND
EXT: 2+ B/L LE edema (h/o chronic lymphedema
NEURO: Gross non-focal
SKIN: No rash
Impression / Plan
-
PCP: Dr. Armstrong
CDY: Va Cohen MD
Impression:
Chest pain
CAD post lithotripsy, PCI LCx x 1 JOSE D 02/05/25
Prior PCI LAD, LCX, OM3 2019
HTN
HLD
DM2
COPD
GERD/HH
FENG
Hypothyroidism
Gout
Chronic lymphedema
Morbid obesity BMI 52.6
Uterine hyperplasia
Previous cardiovascular testing:
Echo 09/27/2020: Normal biventricular size and function, LVEF 55 to 60%, moderate cLVH
Echo 10/27/2024 (at [facility]) normal biventricular size and function LVEF 65%, mild MR and TR, PA systolic pressure 22 mmHg
Cardiac cath 02/05/2025:
Left main: Mild diffuse atherosclerotic plaque
LAD: Known BACK ROLLER 100% in distal LAD with left to left collaterals filling the apex. Previously placed mid to distal LAD stent patent with eccentric 60 to 70% stenosis proximal to stent 40% stenosis distal to stent
Circumflex: 30% ostial left circumflex, proximal left circumflex 80% calcified stenosis proximal to takeoff of OM1. OM1 85 to 90% stenosis. OM 2 vessel jailed after prior PCI in 2019 with diffuse disease 75 to 80% and a distal occlusion with left
to left collaterals. Mid circumflex into OM 3 has prior stent with mild in-stent restenosis.
RCA: 50% ostial stenosis, 30 to 40% mid stenosis
Status post percutaneous intervention of an 80 to 85% heavily calcified proximal left circumflex and an 85 to 90% ostial left circumflex flex stenosis with 1 Medtronic Carlos drug-eluting stent, post IV shockwave atherectomy, postdilated using IVUS
guidance with balloon distally and proximally
Plan:
64-year-old female with CAD s/p PCI in 2019 of LAD, left circumflex, and OM 3, and most recently percutaneous intervention of an 80 to 85% heavily calcified proximal left circumflex and an 85 to 90% ostial left circumflex flex stenosis with 1
Medtronic Carlos drug-eluting stent, post IV shockwave atherectomy, postdilated using IVUS guidance with balloon distally and proximally (02/06/2025). LVEDP 24. Cath did show residual OM 2 stenosis which was IFR positive, medical management was
advised. She was started on dual antiplatelet therapy with aspirin and Plavix, carvedilol was uptitrated to 12.5 mg twice daily, she was continued on isosorbide and Lasix uptitrated for elevated LVEDP.
Since discharge, patient reports continued symptoms with chest tightness radiating to the left arm with associated shortness of breath, dizziness, and nausea with minimal exertion. She no longer has orthopnea which she had prior to cath. Presented
to cardiac rehab today and referred to ED due to concern about persistent symptoms.
Troponin less than 0.012 x 1. EKG in ED: Normal sinus rhythm with no ST-T wave abnormality no change from prior tracing 02/06/2025
Plan:
-admit and trend troponins
-cont DAPT with ASA and Plavix
-cont antianginals Coreg 12.5 mg bid, Isosorbide 60 mg daily and advance as tolerated
-cont Lasix 40 mg bid
-check proBNP
-consider repeat LHC given continued exertional symptoms and known OM2 stenosis
-keep NPO for now
-Telemetry personally reviewed: Normal sinus rhythm 70s- 80s
-LDL 27 continue Zetia and Praluent
-intolerant statins
-of note, she was preop w/u for ELIZABETH for uterine hyperplasia, had abnormal NST and chest pains. Post cath was advised DAPT ASA/Plavix uninterrupted for at least 3-6 mo depending on how she is clinically, then post ELIZABETH will need to resume DAPT for 1
year
Hbg A1c 10.3%, needs tighter control and wt loss encouraged
cardiac rehab
f/u Dr. Parry, has appointment for 03/16/2025.
Data Reviewed
-
EKG: Tracing Personally Visualized and interpreted
Labs: Labs Reviewed by me
== END 2025-02-07 13:09 | disposition home or self-care (01) ==
LOC: CATH 07:22
PROVIDERS: Nurse Practitioner Adult Health; ATTENDING PHYSICIAN Internal Medicine Interventional Cardiology; FAMILY PHYSICIAN Family Medicine; OTHER PHYSICIAN Internal Medicine Cardiovascular Disease
DX: I25.119 Atherosclerotic heart disease of native coronary artery with unspecified angina pectoris (principal); I25.84 Coronary atherosclerosis due to calcified coronary lesion; I49.3 Ventricular premature depolarization; N63.20 Unspecified lump in the left breast, unspecified quadrant; Z88.0 Allergy status to penicillin; Z88.1 Allergy status to other antibiotic agents; Z90.49 Acquired absence of other specified parts of digestive tract; I10 Essential (primary) hypertension; K44.9 Diaphragmatic hernia without obstruction or gangrene; E78.5 Hyperlipidemia, unspecified; E11.9 Type 2 diabetes mellitus without complications; I34.0 Nonrheumatic mitral (valve) insufficiency; K21.9 Gastro-esophageal reflux disease without esophagitis; K27.9 Peptic ulcer, site unspecified, unspecified as acute or chronic, without hemorrhage or perforation; Z86.0100 Personal history of colon polyps, unspecified; Z87.19 Personal history of other diseases of the digestive system; Z87.442 Personal history of urinary calculi; Z86.19 Personal history of other infectious and parasitic diseases; K75.81 Nonalcoholic steatohepatitis (NASH); M19.90 Unspecified osteoarthritis, unspecified site; E03.9 Hypothyroidism, unspecified; N93.9 Abnormal uterine and vaginal bleeding, unspecified; D63.8 Anemia in other chronic diseases classified elsewhere; M10.9 Gout, unspecified; H91.93 Unspecified hearing loss, bilateral; Z85.828 Personal history of other malignant neoplasm of skin; E66.01 Morbid (severe) obesity due to excess calories; Z68.43 Body mass index [BMI] 50.0-59.9, adult; Z79.82 Long term (current) use of aspirin; Z79.02 Long term (current) use of antithrombotics/antiplatelets; Z79.84 Long term (current) use of oral hypoglycemic drugs; Z79.890 Hormone replacement therapy; Z79.899 Other long term (current) drug therapy; Z95.5 Presence of coronary angioplasty implant and graft
CPT/HCPCS: 92972; 92978; 99152; 99153; 93799; C1761; 80048; 80061; 82962; 83036; 83735; 85027; 85347; 93005; 93306; 93458; C1725; C1753; C1769; C1874; C1894; C9600; C9602; Q9967

== ENCOUNTER 2025-03-13 09:00 | Outpatient (RCR) | payer MEDICARE, SELFPAY | END 2025-03-13 23:59 | disposition home or self-care (01) | LOC: CRHB 09:00 | PROVIDERS: ATTENDING PHYSICIAN Internal Medicine Cardiovascular Disease | DX: Z95.5 Presence of coronary angioplasty implant and graft (principal); I25.10 Atherosclerotic heart disease of native coronary artery without angina pectoris | CPT/HCPCS: 93306 ==

== ENCOUNTER 2025-03-15 16:41 | Inpatient (IN) | payer MEDICARE, SELFPAY ==
[2025-03-13] VITALS (8 sets, daily range): BP systolic 142–179; BP diastolic 60–92; PULSE 77–94; BMI 54.0
[2025-03-13 11:35] LABS: % Basophils 0.7 % (0-2); % Eosinophils 2.5 % (0-6); % Immature Granulocytes 0.4 % (0-0.5); % Lymphocytes 28.5 % (20.5-51.1); % Monocytes 10.9 % (1.7-9.3); Absolute Basophils 0.1 10^3/uL (0-0.2); Absolute Eosinophils 0.2 10^3/uL (0-0.7); Absolute Lymphocytes 2.3 10^3/uL (1.2-3.4); Absolute Monocytes 0.9 10^3/uL (0.1-0.6); Absolute Neutrophils 4.6 10^3/uL (1.4-6.5); Hemoglobin 11.5 g/dL (12.0-16.0); Mean Corp Hgb Conc. 31.9 g/dL (33.0-37.0); Mean Corpuscular Hgb 25.9 pg (27.0-31.0); Mean Corpuscular Volume 81.1 fL (81.0-99.0); Mean Platelet Volume 9.4 fL (7.4-10.4); Nucleated Red Blood Cells % 0 %; Platelet Count 274 10^3/uL (130-400); Red Blood Cell Count 4.44 10^6/uL (4.20-5.40); Red Cell Dist. Width 16.6 % (11.5-14.5); White Blood Cell Count 8.1 10^3/uL (4.8-10.8)
[2025-03-13 11:49] LABS: ALT (SGPT) 15 U/L (0-35); AST (SGOT) 16 U/L (14-36); Albumin 3.8 g/dl (3.5-5.0); Alkaline Phosphatase 71 U/L (38-126); Blood Urea Nitrogen 15 mg/dl (7-17); Calcium 9.2 mg/dl (8.4-10.2); Carbon Dioxide 26 mmol/L (22-30); Chloride 107 mmol/L (98-107); Glucose 242 mg/dl (70-99); Potassium 4.3 mmol/L (3.5-5.1); Sodium 139 mmol/L (135-145); Total Bilirubin 0.7 mg/dl (0.2-1.3); Total Protein 6.8 g/dl (6.3-8.2); eGFR > 60.00
[2025-03-13 11:59] LABS: Troponin I < 0.012 ng/ml
--- NOTE | 2025-03-13 13:12 | ED.GENMED ---
History of Present Illness
General
Chief Complaint: Chest Pain
Source: patient
Exam Limitations: none
Time Seen by Provider: 03/13/25 12:58
History of Present Illness
History of Present Illness:
See MDM
Past History
Past History
ED Past Medical History: HTN, Hypercholesterolemia, NIDDM, Other (lymphedema) and Other (Calculus cholecystitis)
ED Past Surgical History: Cardiac, Gynecological and Other (cataracts. Vein surgery)
Social History
Tobacco: Non-smoker
Alcohol: None
Drug: None
Personal:
Living: with family
Employment: Retired
Family History
Family History: Other (Noncontributory)
Phy Exam
Physical Exam
Physical Exam:
See MDM
Scores
Heart Score for Chest Pain Patients
STEMI patient?: No
History: Highly Suspicious
ECG: Nonspecific Repolarization
Age: >/= 65 years
Risk Factors: >/= 3 Risk Factors or History of CAD
Troponin: </= Normal Limit
Heart Score for Chest Pain Patients: 7
Heart Score Risk: 72.7 % MACE over next 6 weeks
Course
Orders/Labs/Results
Orders:
Orders
03/13/25 Breakfast
NPO
Allow oral meds: Yes
Allow clear liquids: Sips of Clears
03/13/25 10:57
EKG [Electrocardiogram (*1)] Urgent
Reason for Study: Chest Pain
EKG- Treatment ONCE
03/13/25 11:21
Complete Blood Count/With Diff Urgent
Comprehensive Metabolic Panel Urgent
TSH Reflex To Free T4 Urgent
Comment: ADD ON
Troponin I Urgent
03/13/25 13:28
CARDIOLOGY CONSULT Urgent
Consulting Provider: Camille Schneider
Was physician already notified: Yes
03/13/25 13:38
Troponin I Urgent
03/13/25 19:35
Admit/Transfer Patient As Directed
Co-Sign Provider:
Level of Care: Observation services
Assign to:: Telemetry
Physician / Group: Eugenio
Diagnosis: Dizziness
Reason for Telemetry: Chest Pain syndromes
Date to Stop Telemetry: 03/15/25
Time to Stop Telemetry: 11:00
03/13/25 19:36
PRN Pain Medication Management As Directed
May give lesser potent ordered pain med per pt: Yes
preference::
Protocol:: Medication orders for pain may be administered in a
manner that supports deferring to patient preference
when the pt is:
- Requesting an ordered lesser potent pain medication.
Least to most potent pain medications are defined
as: acetaminophen < NSAID < tramadol < opioids
(morphine, oxycodone, hydromorphone).
- Requesting a lesser dose of the same medication IF
ORDERED.
- Requesting a less intrusive route of administration
if both routes are prescribed by the provider (PO <
IV).
03/13/25 19:45
Code Status As Directed
Resuscitation Status: Full Code
03/13/25 20:00
Carvedilol [Coreg] 25 mg PO BID
03/13/25 21:47
Acetaminophen [Tylenol] 650 mg PO Q4HPRN PRN
Albuterol Nebs [Ventolin Nebules] 2.5 mg INH R Q4HPRN PRN
Dextrose 50%-Water [Dextrose 50% Syringe] 12.5 grams IV [id number] PRN
Furosemide [Lasix] 40 mg PO BID
Glucagon [GlucaGen] 1 mg IM PRN PRN
Hydrocodone 7.5/APAP 325 [[place] 7.5/325] 1 tablet PO Q6HPRN PRN severe pain severe pain
Losartan [Cozaar] 50 mg PO BID
Nitroglycerin Sublingual [Nitrostat (Sublingual)] 0.4 mg SL [id number] PRN chest pain
03/13/25 21:47
Activity As Directed
Activity Level: Ambulate
With Assistance
Bedside Glucose Monitoring As Directed
Frequency: AC&HS
Additional Instructions:: Change to q6h if pt on TPN, tube feeding or not eating
EKG with chest pain [ECG as needed] As Directed
ECG as needed for:: Chest Pain
I/O [Intake/ Output] As Directed
Frequency: Per unit guidelines
Orthostatic Vital Signs As Directed
Orthostatic VS Frequency: BID
Vital Signs As Directed
Frequency: Per unit guidelines
Weight As Directed
Frequency: Daily
Oxygen Therapy [O2 Therapy] [RESP] Routine
Titrate/Wean O2 to maintain O2 sat greater than (%): 94
DX Deep Vein Thrombosis Video Routine
03/13/25 22:00
Gabapentin [Neurontin] 200 mg PO TID
Medroxyprogesterone [Provera] 10 mg PO TID
Nitrofurantoin Monohydrate [Macrobid] 100 mg PO DAILY@1900
Pantoprazole [Protonix] 40 mg PO HS
insulin degludec [Tresiba FlexTouch U-100] 22 unit SC HS
03/13/25 23:15
Troponin I Q6H
03/14/25 04:10
Basic Metabolic Panel IN AM
Complete Blood Count/No Diff IN AM
Troponin I Q6H
03/14/25 06:00
EKG [Electrocardiogram (*1)] IN AM
Reason for Study: Chest Pain
Levothyroxine [Synthroid] 125 mcg PO DAILY @ 0600
03/14/25 07:30
Insulin Aspart High Resistance [Novolog Flexpen-High Resistance] See Protocol SC AC
03/14/25 08:00
Allopurinol [Zyloprim] 300 mg PO DAILY
Aspirin Chewable [Low Strength Aspirin] 81 mg PO DAILY
Budesonide/Formoterol 160/4.5 [Symbicort 160/4.5 Mcg Inhaler] 2 puff INH R BID
Clopidogrel Bisulfate [Plavix] 75 mg PO DAILY
Ezetimibe [Zetia] 10 mg PO DAILY
Ferrous Sulfate [Feosol] 325 mg PO DAILY
ISOSORBIDE MONOnitrate ER [Imdur (Extended Release)] 60 mg PO DAILY
Sitagliptin Phosphate [Januvia] 100 mg PO DAILY
03/14/25 20:00
Enoxaparin Sodium [Lovenox] 60 mg SC Q12
03/15/25 11:00
DC Protocol for Telemetry ONCE
Abnormal Lab Results
03/13/25
11:21
Hgb 11.5 L g/dL
(12.0-16.0)
Hct 36.0 L %
(37.0-47.0)
MCH 25.9 L pg
(27.0-31.0)
MCHC 31.9 L g/dL
(33.0-37.0)
RDW 16.6 H %
(11.5-14.5)
Absolute Monos (auto) 0.9 H 10^3/uL
(0.1-0.6)
Monocytes % 10.9 H %
(1.7-9.3)
Glucose 242 H mg/dl
(70-99)
03/13/25 11:21
03/13/25 11:21
Vital Signs
Initial and Last Documented VS:
Initial Vital Signs
Temp Pulse Resp BP Pulse Ox
98.2 F 74 16 156/69 100
03/13/25 11:02 03/13/25 11:02 03/13/25 11:02 03/13/25 11:02 03/13/25 11:02
Last Documented Vital Signs
Temp Pulse Resp BP Pulse Ox
98.4 F 76 18 139/60 96
03/14/25 07:29 03/14/25 07:29 03/14/25 07:29 03/14/25 07:29 03/14/25 07:29
MDM/Problems Addressed
Differential Diagnosis Includes:
HPI and MDM Narrative:
64-year-old female presenting with persistent exertional dyspnea and chest pain. Patient had a recent cardiac catheterization where she required lithotripsy and cardiac stents. Patient had medication changes and was supposed to follow-up with
cardiology a few weeks after the procedure. Patient is having trouble with follow-up appointments with her drywall mechanic. She is currently in cardiac rehab but having trouble participating due to the persistent symptoms. Patient states this feels
exactly like she had felt before she needed stents. She states that the drywall mechanic who performed the catheterization had indicated that there are still parts of the cath that she did not stent or they were having trouble stenting. Per the
patient, it appears that she had already received a lot of IV dye and was having trouble tolerating the procedure any further.
Blood work and EKG done prior to my assessment. Troponin negative. EKG nonischemic. Given her persistent symptoms, will have cardiology evaluate
Physical exam
General: Well appearing and non-toxic
HEENT: protecting airway
Neck: appears supple
CV: No evidence of cyanosis. Regular rate and rhythm
Resp: No accessory muscle use. Lungs clear
Abd: Non-distended
Extremities: No deformities
Neuro: alert
Psych: Normal affect
Skin: Intact
Problems Addressed including Acute and Chronic Conditions affecting care:
1. Exertional chest discomfort
Acuity: acute
Prognosis: stable
Details: Given recent catheterization, will have cardiology evaluate
2. [ ]
Acuity: acute
Prognosis: stable
Details:
3. [ ]
Acuity: acute
Prognosis: stable
Details:
4. [ ]
Acuity: acute
Prognosis: stable
Details:
5. [ ]
Acuity:
Prognosis:
Details:
Updates
Differential Diagnosis (but not limited to): Acute coronary syndrome, adverse medication reaction
Testing considered: Chest x-ray
Drug therapy (if applicable): OTC meds, please see d/c instruction regarding Rx drugs
Amount and/or Complexity of Data Reviewed
Clinical info obtained from: Patient
External data reviewed: N/A
Labs I independently reviewed (but not limited to): Troponin normal
Radiology: N/A
Pulse Ox: not hypoxic
EKG independently reviewed sinus rhythm, normal axis, no STEMI
Rubber Covering Machine Operator: N/A
Critical Care: N/A
Risk of Complication:
Social Determinants of health: Good social support
Discussed with other providers: N/A
Escalation of Care includes Admit/Obs: After being observed in the Emergency Department, pt stable for discharge.
Occasional wrong word or 'sound a like' substitutions may have occurred due to the inherent limitations of voice recognition software. Read the chart carefully and recognize, using context, where substitutions have occurred.
*Critical Care Note
Total Time (30-74mins, 75-104mins- exclusive of procedures): Not Applicable
ED Attending Note
-
Portions of this chart may have been created with voice recognition software.� Occasional wrong word or��sound alike� substitutions may have occurred due to the inherent limitations of voice recognition software.
Discharge Plan
Departure
Patient Disposition: Admit
Date of Disposition: 03/13/25
Time of Disposition: 18:51
Presentation/result/management discussed w/ accepting MD/DO: Hospitalist
Patient with high blood pressure during this ER visit?: No
Condition: Good
Covid-19: Not Applicable
Discharge Problem:
Dizziness
Interventions
Interventions:
*Risk Screen - Suicide Last Done: 03/13/25 21:56
*General Assessment Last Done: 03/13/25 12:57
*Neglect/Abuse Screening Last Done: 03/13/25 11:02
*ED- Fall Risk Assessment Last Done: 03/13/25 21:43
*ED COVID-19 Vaccine History Last Done: 03/13/25 21:56
*Nursing Disposition Last Done: 03/13/25 21:44
ED- Cardiac Assessment Last Done: 03/13/25 20:00
Discharge Date and Time
Discharge Date/Time: 03/13/25 21:44
[2025-03-13 14:11] LABS: Troponin I < 0.012 ng/ml
--- NOTE | 2025-03-13 19:56 | HPS.HSE ---
Family Physician
-
Family Physician: Crystal Monroe
Chief Complaint
-
Dizziness
History of Present Illness
Patient is a 64y F with PMH significant for ASCVD, hypertension and DM-II who presents to ED complaining of dizziness and dyspnea with exertion. Patient was undergoing pre-op evaluation prior to hysterectomy when she 'failed' a stress test. She
went for cardiac cath on 02/05 with placement of coronary stents. There was an OM2 stenosis which was not stented and medical management was recommended. During that hospitalization, her carvedilol was increased from 6.25mg to 12.5mg BID. Her
Lasix was increased from 20mg BID to 40mg BID. She was newly started on Imdur and Plavix.
Patient states that she has not felt 'right' since that procedure. She has continued to have exertional symptoms - primarily shortness of breath and dizziness with activity.
These symptoms have steadily increased since January. Patient was at cardiac rehab today and had difficulty participating due to her symptoms. She was sent to the ED for further evaluation.
Patient feels fairly well at rest. She complains of lightheadedness / dizziness, shortness of breath and some chest discomfort radiating to the L arm that occurs with activity and improves with rest.
Medical History
Past Medical History
Past Medical History: Reports Other
Additional Past Medical History:
ASCVD
Hypertension
DM-II
Morbid Obesity
Asthma
GERD
MAFLD
Hypothyroidism
Chronic Lymphedema
Uterine Hyperplasia
Iron Deficiency Anemia
Past Surgical History: Reports Other
Additional Past Surgical History:
PTCA with Stents (02/05/25)
Cholecystectomy
Social History
Tobacco: Non-smoker
Alcohol: None
Drug: None
Family History
Family History: Not pertinent
Allergies / Home Medications
Allergies reflects when Allergies were last updated in [employer].
Home Medications with original date entered in [employer]
Allergy/Medication List:
Allergies
Allergy/AdvReac Type Severity Reaction Status Date / Time
ampicillin (Ampicillin) Allergy 30 yrs ago Verified 03/13/25 11:01
delayed
Rash
Calcium Channel Blocking Allergy Swelling, Verified 03/13/25 11:01
Agent Dilt (Calcium Channel Redness,
Blocking Agents-Law) Tachycardia
cefprozil (From Cefzil) Allergy 30 yrs ago Verified 03/13/25 11:01
delayed
rash
insulin lispro (From Humalog Allergy WELTS Verified 03/13/25 16:53
U-100 Insulin)
labetalol HCl (From Trandate) Allergy hallucinati Verified 03/13/25 11:01
ons
latex (Latex) Allergy Rash, Verified 03/13/25 11:01
Welts,
Blistering
levofloxacin (From Levaquin) Allergy Ruptured Verified 03/13/25 11:01
Tendons
ragweed pollen Allergy SNEEZING Verified 03/13/25 16:53
Home Medications
cetirizine 10 mg tablet 10 mg PO DAILY Allergies 10/11/09
allopurinol 300 mg tablet 300 mg PO DAILY Gout 09/26/20
cholecalciferol (vitamin D3) 25 mcg (1,000 unit) capsule (Vitamin D3) 50,000 unit PO WE Supplement 09/26/20
gabapentin 100 mg capsule 200 mg PO TID 09/26/20
aspirin 81 mg chewable tablet 81 mg PO DAILY 09/29/20
albuterol sulfate 90 mcg/actuation aerosol inhaler (Ventolin HFA) 2 puff inhalation Q4HPRN PRN sob 04/03/21
ezetimibe 10 mg tablet 10 mg PO DAILY High cholesterol 04/05/21
insulin aspart U-100 100 unit/mL subcutaneous solution (Novolog U-100 Insulin aspart) 22 units SC AC Diabetes 05/04/21
levothyroxine 125 mcg tablet 125 mcg PO DAILY AT 0700 Thyroid 05/09/21
alirocumab 150 mg/mL subcutaneous pen injector (Praluent Pen) 150 mg SC Q14D 09/19/24
fluticasone furoate 200 mcg-vilanterol 25 mcg/dose inhalation powder (Breo Ellipta) 1 inh inhalation DAILY 09/19/24
mirabegron 50 mg tablet,extended release 24 hr (Myrbetriq) 50 mg PO DAILY 09/19/24
nitrofurantoin 100 mg capsule 100 mg PO .1900 09/19/24
vitamin E 400 unit tablet 400 unit PO DAILY 09/19/24
cyclobenzaprine 10 mg tablet 10 mg PO TID PRN muscle spasms 02/03/25
ferrous sulfate 325 mg (65 mg iron) tablet 325 mg PO DAILY 02/03/25
hydrocodone 7.5 mg-acetaminophen 300 mg tablet 1 tab PO Q6H PRN bone pain 02/03/25
insulin degludec 100 unit/mL (3 mL) subcutaneous pen (Tresiba FlexTouch U-100 insulin) 45 unit SC HS 02/03/25
losartan 50 mg tablet (Cozaar) 50 mg PO BID 02/03/25
medroxyprogesterone 10 mg tablet (Provera) 10 mg PO TID 02/03/25
nitroglycerin 0.4 mg sublingual tablet 0.4 mg sublingual Q5-15M PRN chest pain 02/03/25
pantoprazole 40 mg tablet,delayed release 40 mg PO HS 02/03/25
sitagliptin phosphate 100 mg tablet (Januvia) 100 mg PO DAILY 02/03/25
carvedilol 12.5 mg tablet 12.5 mg PO BID #60 tabs 02/06/25
clopidogrel 75 mg tablet 75 mg PO DAILY #90 tabs 02/06/25
furosemide 40 mg tablet (Lasix) 40 mg PO BID #0 tabs 02/06/25
isosorbide mononitrate 60 mg tablet,extended release 24 hr 60 mg PO DAILY 02/06/25
Review of Systems
-
History Source: Patient
A 12 point ROS was completed and negative except as noted: Yes
Constitutional: Reports Fatigue; Denies Fever or Chills
Respiratory: Reports Trouble Breathing; Denies Cough
Cardiac: Reports Chest Pain; Denies Palpitations or Syncope
Abdomen/GI: Reports Nausea; Denies Abdominal Pain, Vomiting or Diarrhea
: Denies Dysuria or Frequency
Musculoskeletal: Denies Joint Pain or Edema
Neurological: Reports Dizzy; Denies Headache
Psych: Denies Depression or Anxiety
Physical Exam
Vital Signs
Vital Signs
Temp Pulse Resp BP Pulse Ox
98 F 75 20 168/70 98
03/13/25 14:00 03/13/25 19:00 03/13/25 19:00 03/13/25 19:00 03/13/25 12:56
Physical Exam
General: Other (64y F in no acute distress)
HEENT: Moist mucous membranes, PERRLA and Other (Thick neck)
Respiratory: Clear; No Wheezes, Rales or Rhonchi
Cardiac: S1/S2, Regular Rhythm and Murmur (II/ JUDI)
GI: Soft, Non Tender, Non Distended and Normal Bowel Sounds
Musculoskeletal: No Clubbing, No Cyanosis and Other (Chronic LE lymphedema with nodular skin changes.)
Neuro: AO x 3
Laboratory Results
-
03/13/25 11:21
03/13/25 11:21
Laboratory Results
Total Bilirubin 0.7 mg/dl (0.2-1.3) 03/13/25 11:21
AST 16 U/L (14-36) 03/13/25 11:21
ALT 15 U/L (0-35) 03/13/25 11:21
Alkaline Phosphatase 71 U/L (38-126) 03/13/25 11:21
Troponin I < 0.012 ng/ml 03/13/25 13:38
Impression/Plan
-
A/P: Patient is a 64y F with PMH significant for ASCVD, HTN and DM-II who presents to ED complaining of exertional dyspnea, dizziness and chest pain.
Exertional Symptoms
ASCVD
- Observe overnight for further evaluation and treatment.
- Patient with worsening symptoms since hospitalization in January.
- ? persistent anginal symptoms versus med effect from multiple med changes / additions during recent stay.
- Troponin undetectable thus far.
- Follow for any new / worsening symptoms.
- Monitor orthostatic vital signs.
- Adjust med regimen as needed for improvement in symptoms - ? if this means increasing or decreasing meds.
DM-II
- Poorly controlled. A1C = 10.5% last month.
- Continue basal insulin (1/2 dose for now while NPO).
- SSI as needed.
- Would consider addition of SGLT-2 for improved DM control and CV risk reduction.
Benign Hypertension
- Remains uncontrolled which makes idea of hypotension due to med changes unlikely.
- Continue current med regimen and adjust as needed for improved BP control.
Asthma without Acute Exacerbation
- Stable. Continue inhaled medication regimen.
- Albuterol PRN.
Hypothyroidism
- Continue current T4 replacement. Update TFTs.
Chronic Lymphedema
- Continue current Lasix dose for now. Check orthostatic signs as noted.
- LE compression therapy / elevation as tolerated.
Gout
- Stable. No active joint pain / swelling.
- Continue allopurinol.
Morbid Obesity due to excess calories
- Affects all aspects of care - including exercise tolerance / exertional symptoms.
- Encourage healthy diet and increased activity as able with goal of weight reduction.
DVT Prophylaxis: Lovenox
Code Status: Full
[2025-03-13] MEDS: COREG 25 MG PO (20:23)
--- NOTE | 2025-03-13 22:00 | PTCARENOTE ---
Pt arrived to room 418-01. Pt ambulated from stretcher to bed with standby assistance. Pt c/o very minimal dizziness at times. Pt AAOx3. Pt oriented to room, call barragan placed within reach. Bed alarm in place.
[2025-03-13 22:20] LABS: Glucose - Point of Care 141 mg/dl (70-99)
[2025-03-13] MEDS: COZAAR 50 MG PO (22:37)
[2025-03-13] MEDS: MACROBID 100 MG PO (22:38)
[2025-03-13] MEDS: LASIX 40 MG PO (22:38)
[2025-03-13] MEDS: NEURONTIN 200 MG PO (22:39)
[2025-03-13] MEDS: PROTONIX 40 MG PO (22:39)
[2025-03-13] MEDS: PROVERA 10 MG PO (22:39)
[2025-03-13] MEDS: LANTUS SC (22:41)
[2025-03-13] MEDS: LANTUS 0.22 UNITS SC (23:23)
[2025-03-13 23:49] LABS: Troponin I < 0.012 ng/ml
[2025-03-13 23:57] LABS: Glucose - Point of Care 160 mg/dl (70-99)
[2025-03-14] VITALS (7 sets, daily range): BP systolic 94–159; BP diastolic 55–83; PULSE 70–79; BMI 53.8
[2025-03-14 00:08] LABS: TSH Reflex To Free T4 1.04 uIU/ml (0.47-4.68)
[2025-03-14 04:21] LABS: Hemoglobin 10.9 g/dL (12.0-16.0); Mean Corp Hgb Conc. 32.1 g/dL (33.0-37.0); Mean Corpuscular Hgb 25.5 pg (27.0-31.0); Mean Corpuscular Volume 79.4 fL (81.0-99.0); Mean Platelet Volume 9.7 fL (7.4-10.4); Platelet Count 265 10^3/uL (130-400); Red Blood Cell Count 4.28 10^6/uL (4.20-5.40); Red Cell Dist. Width 16.6 % (11.5-14.5); White Blood Cell Count 8.9 10^3/uL (4.8-10.8)
[2025-03-14 04:44] LABS: Blood Urea Nitrogen 12 mg/dl (7-17); Calcium 8.9 mg/dl (8.4-10.2); Carbon Dioxide 20 mmol/L (22-30); Chloride 111 mmol/L (98-107); Estimated Creatinine Clearance 105 ml/min; Glucose 196 mg/dl (70-99); Potassium 4.3 mmol/L (3.5-5.1); Sodium 138 mmol/L (135-145); eGFR > 60.00
[2025-03-14 04:59] LABS: Troponin I < 0.012 ng/ml
[2025-03-14] MEDS: SYNTHROID 125 MCG PO (05:04)
[2025-03-14 05:12] LABS: Glucose - Point of Care 206 mg/dl (70-99)
--- NOTE | 2025-03-14 07:15 | W.PN.HOSP.TC ---
Today's Communication/Plan
-
check CT head
PT/OT eval
cardiac/BP/diuretic medications as per Cardio
meclizine prn
glycemic control
Isaias recinos
Assessment / Plan
Assessment / Plan
Physical Exam
General: no acute distress, appears comfortable at this time. Morbidly obese
HEENT: Moist mucous membranes, PERRLA, Thick neck
Respiratory: Clear; No Wheezes, Rales or Rhonchi
Cardiac: S1/S2, Regular Rhythm and Murmur (III/ JUDI)
GI: Soft, Non Tender, Non Distended and Normal Bowel Sounds
Musculoskeletal: No Clubbing, No Cyanosis and Chronic LE lymphedema with nodular skin changes
Neuro: AO x 3 conversant coherent
A/P: Patient is a 64y F with PMH significant for ASCVD, HTN and DM-II who presents to ED complaining of exertional dyspnea, dizziness and chest pain.
Exertional Symptoms
ASCVD
Orthostatic Hypotension
Persistent Dizziness sensation room spinning at rest, symptom independent of head position
- Patient with worsening symptoms since hospitalization in January.
- Question persistent anginal symptoms versus med effect from multiple med changes / additions during recent stay.
- neg Troponin x4
- Follow for any new / worsening symptoms.
- Monitor orthostatic vital signs. Isaias recinos ordered, Hospital TEDs too small for her, patient has her own compression stockings encouraged to use
- Meclizine prn
- Cardio eval appreciated Home Coreg reduced from 25 to 12.5 mg BID and Lasix reduced from 40 mg BID to 40 mg AM and 20 mg PM
- PT/OT eval
-Check CT head
DM-II
- Poorly controlled. A1C = 10.5% last month.
- Continue basal (patient prefers her own med Tresiba) bolus insulin
- SSI high dose algorithm
- Cont Januvia
- monitor and titrate insulin regimen as necessary
HTN
Cont antihypertensives with adjustments as per Cardio above
Asthma without Acute Exacerbation
- Stable. Continue inhaled medication regimen.
- Albuterol PRN.
Hypothyroidism
- Continue current T4 replacement
- TSH wnl
Chronic Lymphedema
- Lasix as per Cardio above
- LE compression therapy / elevation as tolerated.
Gout
- Stable. No active joint pain / swelling.
- Continue allopurinol.
Morbid Obesity due to excess calories
- Affects all aspects of care - including exercise tolerance / exertional symptoms.
- Encourage healthy diet and increased activity as able with goal of weight reduction.
DVT Prophylaxis: Lovenox
Code Status: Full
Discussed with patient and patient's son Parveen
I spent a total of 50 minutes with the patient or on the floor. More than 50% of this time involved counseling and coordination of care.
Anticipated Discharge: 24 - 48 hours
Subjective/Interval History
-
Date of Service: March 14, 2025
No acute distress resting comfortably in bed. Reports sensation room spinning while at rest. No worse or better turning head to one side or the other.
Objective Data
-
Labs:
Laboratory Results
03/14/25
04:10
WBC 8.9
Hgb 10.9 L
Hct 34.0 L
Plt Count 265
Sodium 138
Potassium 4.3
Chloride 111 H
Carbon Dioxide 20 L
BUN 12
Creatinine 0.8
Glucose 196 H
Calcium 8.9
Vital Signs:
Vital Signs
Temp Pulse Resp BP Pulse Ox
97.8 F 83 18 159/63 95
03/14/25 03:15 03/14/25 03:15 03/14/25 03:15 03/14/25 03:15 03/14/25 03:15
[2025-03-14 07:48] LABS: Glucose - Point of Care 161 mg/dl (70-99)
[2025-03-14] MEDS: ZETIA 10 MG PO (08:53)
[2025-03-14] MEDS: PROVERA 10 MG PO ×3 (08:54→21:34)
[2025-03-14] MEDS: PLAVIX 75 MG PO (08:54)
[2025-03-14] MEDS: JANUVIA 100 MG PO (08:54)
[2025-03-14] MEDS: IMDUR (EXTENDED RELEASE) 60 MG PO (08:54)
[2025-03-14] MEDS: FEOSOL 325 MG PO (08:54)
[2025-03-14] MEDS: ZYLOPRIM 300 MG PO (08:54)
[2025-03-14] MEDS: NEURONTIN 200 MG PO ×3 (08:54→21:34)
[2025-03-14] MEDS: LASIX 40 MG PO (08:54)
[2025-03-14] MEDS: COREG 25 MG PO (08:54)
[2025-03-14] MEDS: COZAAR 50 MG PO ×2 (08:54→21:33)
[2025-03-14] MEDS: LOW STRENGTH ASPIRIN 81 MG PO (08:54)
[2025-03-14] MEDS: NOVOLOG FLEXPEN-HIGH RESISTANCE 2 UNITS SC (09:38)
--- NOTE | 2025-03-14 11:14 | CM ---
Patient seen bedside, initial assessment completed. Patient is a 64y F with PMH significant for ASCVD, hypertension and DM-II who presents to ED complaining of dizziness and dyspnea with exertion.
Patient resides w/ son in a 1st flr apartment- no steps. Patient is primarily independent w/ ambulation, reports that when she feels dizzy she will use her RW. Patient has additional grab bar, raised toilet seat in bathroom, a neb machine and boots
and braces for her ankles and legs.
[facility] re[facility] in the past, episodes of OP therapy in the past, VN in the past (doesn't recall provider).
Address, point of contact and insurance verified
PCP: Bharti Healy
Pharmacy: [facility]
Patient admitted obs. FINNEGAN form verbally reviewed, copy given to patient, copy on chart
PT/OT ordered, will review eval recommendations if any
Plan: Will await PT/OT eval
[2025-03-14 12:44] LABS: Glucose - Point of Care 309 mg/dl (70-99)
--- NOTE | 2025-03-14 13:33 | W.PN.CARDCBS ---
Today's Communication / Plan
-
Given orthostasis will decrease carvedilol to back to 12.5 mg twice daily (was increased to 25 twice daily this hospital stay).
Follow for angina. If recurrence of angina could consider Ranexa after assessment of drug to drug interactions.
Decrease from Lasix 40 mg bid to 40 mg in the morning and 20 mg in the p.m. Starting tomorrow and skipping today's 20 mg dose
Check proBNP
Orthostatic vital signs after drinking more fluids today. 36 ounce fluids at least daily
Orthostatic vital signs also in the morning
Ambulatory vital signs and checking for angina
Impression / Plan
-
Impression / Plan
-
PCP: Dr. Armstrong
CDY: Va Cohen MD
Impression:
Dizziness with orthostatic vital signs
Chest pain
CAD post lithotripsy, PCI LCx x 1 JOSE D 02/05/25
Prior PCI LAD, LCX, OM3 2019
HTN
HLD
DM2
COPD
GERD/HH
FENG
Hypothyroidism
Gout
Chronic lymphedema
Morbid obesity BMI 52.6
Uterine hyperplasia
Previous cardiovascular testing:
Echo 09/27/2020: Normal biventricular size and function, LVEF 55 to 60%, moderate cLVH
Echo 10/27/2024 (at [facility]) normal biventricular size and function LVEF 65%, mild MR and TR, PA systolic pressure 22 mmHg
Cardiac cath 02/05/2025:
Left main: Mild diffuse atherosclerotic plaque
LAD: Known [employer] 100% in distal LAD with left to left collaterals filling the apex. Previously placed mid to distal LAD stent patent with eccentric 60 to 70% stenosis proximal to stent 40% stenosis distal to stent
Circumflex: 30% ostial left circumflex, proximal left circumflex 80% calcified stenosis proximal to takeoff of OM1. OM1 85 to 90% stenosis. OM 2 vessel jailed after prior PCI in 2020 with diffuse disease 75 to 80% and a distal occlusion with left
to left collaterals. Mid circumflex into OM 3 has prior stent with mild in-stent restenosis.
RCA: 50% ostial stenosis, 30 to 40% mid stenosis
Status post percutaneous intervention of an 80 to 85% heavily calcified proximal left circumflex and an 85 to 90% ostial left circumflex flex stenosis with 1 Medtronic Nevis drug-eluting stent, post IV shockwave atherectomy, postdilated using IVUS
guidance with balloon distally and proximally
Echo 03/14/25: Normal left ventricular size. LVEF 70% . Mild concentric left ventricular hypertrophy. Normal RV. Aortic valve sclerosis. Trace TR with PA pressure 25 mmHg.
Plan:
She is here for symptoms primarily of dizziness but also of chest discomfort. Today she is dizzy with change in position and has clearly orthostatic vital signs noted. Difficult situation given she has lymphedema and is unable to put on support
stockings. She also appears deconditioned.
She has a complex cardiac history status with CAD s/p PCI in 2019 of LAD, left circumflex, and OM 3, and most recently percutaneous intervention of an 80 to 85% heavily calcified proximal left circumflex and an 85 to 90% ostial left circumflex flex
stenosis with 1 Medtronic Nevis drug-eluting stent, post IV shockwave atherectomy, postdilated using IVUS guidance with balloon distally and proximally (02/06/2025). LVEDP 24. Cath did show residual OM 2 stenosis which was IFR positive, medical
management was advised. She was started on dual antiplatelet therapy with aspirin and Plavix, carvedilol was uptitrated to 12.5 mg twice daily, she was continued on isosorbide and Lasix uptitrated for elevated LVEDP.
She unfortunately has been not able to complete cardiac rehab because of dizziness and at times chest pressure symptoms.
This admission troponins have been negative. Echo is stable without change.
In regard to complex coronary disease. Troponins are negative and EKG without acute abnormality. No chest pain overnight. Echocardiogram without change.
-cont DAPT with ASA and Plavix
-cont antianginals Coreg , Isosorbide 60 mg daily and advance as tolerated
-However given orthostasis will decrease carvedilol to back to 12.5 mg twice daily (was increased to 25 twice daily this hospital stay). And will need to follow-up for angina.
-If recurrence of angina could consider Ranexa after assessment of drug to drug interactions.
-Given orthostasis would decrease from Lasix 40 mg bid to 40 mg in the morning and 20 mg in the p.m. Starting tomorrow and skipping today's 20 mg dose
-check proBNP
-consider repeat LHC if accelerated exertional symptoms given known OM2 stenosis
-Telemetry personally reviewed and stable.
-Lipids are at goal on injectable cholesterol lowering.
-intolerant statins
Dizziness
- Undergoing assessment by primary service
- CT scan pending
- Much appears to be related to orthostasis
Orthostatic hypotension
- Caution with changing position
- Isometric exercises reviewed
- Needs better control of diabetes
- Continue to work on deconditioning
- Needs better control of lymphedema/venous insufficiency all of which are contributing
- We will have her hydrate better today and reassess orthostatic vital signs
- Ambulatory vital signs later today
Chronic lymphedema
-Also likely venous insufficiency which is likely contributing to chronic orthostasis
-She is unable to be apply compression stockings given mobility limitations. We did discuss zipped stockings. Perhaps evaluation by lymphedema clinic would be helpful
Uncontrolled diabetes
-Hbg A1c 10.3%, needs tighter control and wt loss encouraged
-Defer to primary service. Needs aggressive treatment given this likely is contributing to orthostasis
Uterine hyperplasia
-of note, she was preop w/u for ELIZABETH for uterine hyperplasia, had abnormal NST and chest pains. Post cath was advised DAPT ASA/Plavix uninterrupted for at least 3-6 mo depending on how she is clinically, then post ELIZABETH will need to resume DAPT for 1
year
f/u Dr. Parry, has appointment for 03/16/2025.
Progress Note - Fish Smoker
Subjective
Date of Service: March 14, 2025
She is dizzy with changing position. She is denying chest pain but has not been ambulating.
Objective
Labs:
03/14/25 04:10
03/14/25 04:10
Labs
Hgb 10.9 g/dL (12.0-16.0) L 03/14/25 04:10
Hct 34.0 % (37.0-47.0) L 03/14/25 04:10
Plt Count 265 10^3/uL (130-400) 03/14/25 04:10
Sodium 138 mmol/L (135-145) 03/14/25 04:10
Potassium 4.3 mmol/L (3.5-5.1) 03/14/25 04:10
BUN 12 mg/dl (7-17) 03/14/25 04:10
Creatinine 0.8 mg/dL (0.6-1.0) 03/14/25 04:10
Glucose 196 mg/dl (70-99) H 03/14/25 04:10
Troponins
03/13/25 03/13/25 03/13/25
11:21 13:38 23:15
Troponin I < 0.012 < 0.012 < 0.012
03/14/25 03/14/25
04:10 09:47
Troponin I < 0.012 Cancelled
Vital Signs and I&O:
Vital Signs
Temp Pulse Resp BP Pulse Ox
98.6 F 70 18 128/65 98
03/14/25 12:09 03/14/25 12:09 03/14/25 12:09 03/14/25 12:09 03/14/25 12:09
Vital Signs
Temp Pulse Resp BP Pulse Ox
98.6 F 70 18 128/65 98
03/14/25 12:09 03/14/25 12:09 03/14/25 12:09 03/14/25 12:09 03/14/25 12:09
Physical Exam
Physical Exam
General: Well developed, well nourished in NAD.
Heart: Distant heart sounds, RRR, no murmurs, No S3, S4, no rubs.
Lungs: Coarse anterior breath sounds
Extremities: +1-2 lymphedema
Neuro: Grossly nonfocal, awake, alert and oriented x3.
[2025-03-14] MEDS: ANTIVERT 25 MG PO (14:01)
[2025-03-14] MEDS: NOVOLOG FLEXPEN-HIGH RESISTANCE 10 UNITS SC (14:20)
[2025-03-14 17:24] LABS: Glucose - Point of Care 285 mg/dl (70-99)
[2025-03-14] MEDS: NOVOLOG FLEXPEN-HIGH RESISTANCE 7 UNITS SC (17:50)
[2025-03-14] MEDS: MACROBID 100 MG PO (21:32)
[2025-03-14] MEDS: COREG 12.5 MG PO (21:32)
[2025-03-14] MEDS: LOVENOX 60 MG SC (21:33)
[2025-03-14] MEDS: PROTONIX 40 MG PO (21:34)
[2025-03-14] MEDS: NON-FORMULARY ITEM 22 UNIT SC (21:36)
[2025-03-14 21:37] LABS: Glucose - Point of Care 293 mg/dl (70-99)
[2025-03-15] VITALS (10 sets, daily range): BP systolic 122–182; BP diastolic 54–81; PULSE 70–83; O2SAT 98–99; BMI 51.9
[2025-03-15] MEDS: SYNTHROID 125 MCG PO (05:52)
--- NOTE | 2025-03-15 07:00 | W.PN.HOSP.TC ---
Today's Communication/Plan
-
cont cardiac meds as per Cardiology
Abd binder, remove at bedtime
blood pressure control
glycemic controll
monitor orthostatic vitals
possible discharge tomorrow if symptomatic improvement continues
Assessment / Plan
Assessment / Plan
Physical Exam
General: no acute distress, appears comfortable at this time. Morbidly obese
HEENT: Moist mucous membranes, PERRLA, Thick neck
Respiratory: Clear; No Wheezes, Rales or Rhonchi
Cardiac: S1/S2, Regular Rhythm and Murmur (III/ JUDI)
GI: Soft, Non Tender, Non Distended and Normal Bowel Sounds
Musculoskeletal: No Clubbing, No Cyanosis and Chronic LE lymphedema with nodular skin changes
Neuro: AO x 3 conversant coherent
A/P: Patient is a 64y F with PMH significant for ASCVD, HTN and DM-II who presents to ED complaining of exertional dyspnea, dizziness and chest pain.
Exertional Symptoms
ASCVD
Orthostatic Hypotension
Persistent Dizziness sensation room spinning at rest, symptom independent of head position
- Patient with worsening symptoms since hospitalization in January.
- Question persistent anginal symptoms versus med effect from multiple med changes / additions during recent stay.
- neg Troponin x4
- Follow for any new / worsening symptoms.
- Monitor orthostatic vital signs. Isaias recinos ordered, Hospital TEDs too small for her, patient has her own compression stockings encouraged to use
- Meclizine prn
- Cardio eval appreciated Home Coreg reduced from 25 to 12.5 mg BID and Lasix reduced from 40 mg BID to 40 mg AM and 20 mg PM
- PT/OT eval appreciated resume Cardiac rehab on discharge
-CT head appreciated no acute abn's
-Has outpt appt w/ java user interface developer Dr Cohen 03/16, patient rescheduling
DM-II
- Poorly controlled. A1C = 10.5% last month.
- Continue basal (patient prefers her own med Tresiba) bolus insulin
- SSI high dose algorithm
- Cont Januvia
- monitor and titrate insulin regimen as necessary
HTN
Cont antihypertensives with adjustments as per Cardio above
Asthma without Acute Exacerbation
- Stable. Continue inhaled medication regimen.
- Albuterol PRN.
Hypothyroidism
- Continue current T4 replacement
- TSH wnl
Chronic Lymphedema
- Lasix as per Cardio above
- LE compression therapy / elevation as tolerated.
-likely benefit outpt lymphedema clinic
Gout
- Stable. No active joint pain / swelling.
- Continue allopurinol.
Morbid Obesity due to excess calories
- Affects all aspects of care - including exercise tolerance / exertional symptoms.
- Encourage healthy diet and increased activity as able with goal of weight reduction.
DVT Prophylaxis: Lovenox
Code Status: Full
Discussed with patient and patient's son Parveen
I spent a total of 45 minutes with the patient or on the floor. More than 50% of this time involved counseling and coordination of care.
Anticipated Discharge: 24 - 48 hours
Subjective/Interval History
-
Date of Service: March 15, 2025
Dizziness improving though not resolved. Overall reports feeling well. Denies new acute issues.
Objective Data
-
Labs:
Laboratory Results
03/15/25
06:00
WBC Pending
Hgb Pending
Hct Pending
Plt Count Pending
Sodium Pending
Potassium Pending
Chloride Pending
Carbon Dioxide Pending
BUN Pending
Creatinine Pending
Glucose Pending
Calcium Pending
Vital Signs:
Vital Signs
Temp Pulse Resp BP Pulse Ox
98.8 F 74 16 155/71 96
03/15/25 03:00 03/15/25 03:00 03/15/25 03:00 03/15/25 03:00 03/15/25 03:00
I&O
03/14/25 03/15/25 03/16/25
06:59 06:59 06:59
Intake Total 480 / 480
Balance 480 / 480
[2025-03-15 07:55] LABS: Glucose - Point of Care 265 mg/dl (70-99)
[2025-03-15] MEDS: NOVOLOG FLEXPEN-HIGH RESISTANCE 7 UNITS SC ×3 (07:59→18:17)
[2025-03-15] MEDS: NOVOLOG FLEXPEN 10 UNITS SC ×3 (08:00→18:17)
[2025-03-15 08:01] LABS: NT-proBNP 112 pg/ml
[2025-03-15] MEDS: IMDUR (EXTENDED RELEASE) 60 MG PO (08:01)
[2025-03-15 08:02] LABS: Hematocrit 36.9 % (37.0-47.0); Hemoglobin 11.5 g/dL (12.0-16.0); Mean Corp Hgb Conc. 31.2 g/dL (33.0-37.0); Mean Corpuscular Hgb 25.4 pg (27.0-31.0); Mean Corpuscular Volume 81.6 fL (81.0-99.0); Mean Platelet Volume 10.1 fL (7.4-10.4); Platelet Count 305 10^3/uL (130-400); Red Blood Cell Count 4.52 10^6/uL (4.20-5.40); Red Cell Dist. Width 16.2 % (11.5-14.5); White Blood Cell Count 7.6 10^3/uL (4.8-10.8)
[2025-03-15] MEDS: ZETIA 10 MG PO (08:02)
[2025-03-15] MEDS: NEURONTIN 200 MG PO ×3 (08:02→22:00)
[2025-03-15] MEDS: PLAVIX 75 MG PO (08:02)
[2025-03-15] MEDS: PROVERA 10 MG PO ×3 (08:02→22:00)
[2025-03-15] MEDS: LOVENOX 60 MG SC ×2 (08:02→21:59)
[2025-03-15] MEDS: LOW STRENGTH ASPIRIN 81 MG PO (08:03)
[2025-03-15] MEDS: JANUVIA 100 MG PO (08:03)
[2025-03-15] MEDS: FEOSOL 325 MG PO (08:03)
[2025-03-15] MEDS: ZYLOPRIM 300 MG PO (08:03)
[2025-03-15] MEDS: COREG 12.5 MG PO ×2 (08:10→20:34)
[2025-03-15] MEDS: LASIX 40 MG PO (08:10)
[2025-03-15] MEDS: NON-FORMULARY ITEM 1 INH INH (08:19)
[2025-03-15 08:25] LABS: Blood Urea Nitrogen 13 mg/dl (7-17); Calcium 9.7 mg/dl (8.4-10.2); Carbon Dioxide 26 mmol/L (22-30); Chloride 105 mmol/L (98-107); Estimated Creatinine Clearance 82 ml/min; Glucose 258 mg/dl (70-99); Magnesium 1.7 mg/dl (1.6-2.3); Phosphorus 3.8 mg/dl (2.5-4.5); Potassium 4.3 mmol/L (3.5-5.1); Sodium 136 mmol/L (135-145); eGFR > 60.00
[2025-03-15] MEDS: COZAAR 50 MG PO ×2 (09:19→20:38)
[2025-03-15 11:43] LABS: Glucose - Point of Care 269 mg/dl (70-99)
--- NOTE | 2025-03-15 14:39 | W.PN.CARDCBS ---
Today's Communication / Plan
-
Continue caution with changing position
Continue current cardiac meds, no angina
Telemetry reviewed and stable
Orthostatic hypotension is likely main chair car driver of symptoms.
Consider outpatient lymphedema assessment, compression stockings as tolerates she may try zip stockings. Continue isometric exercises.
Impression / Plan
-
Impression / Plan
-
PCP: Dr. Armstrong
CDY: Va Cohen MD
Impression:
Dizziness with orthostatic vital signs
Chest pain
CAD post lithotripsy, PCI LCx x 1 JOSE D 02/05/25
Prior PCI LAD, LCX, OM3 2019
HTN
HLD
DM2
COPD
GERD/HH
FENG
Hypothyroidism
Gout
Chronic lymphedema
Morbid obesity BMI 52.6
Uterine hyperplasia
Previous cardiovascular testing:
Echo 09/27/2020: Normal biventricular size and function, LVEF 55 to 60%, moderate cLVH
Echo 10/27/2024 (at [facility]) normal biventricular size and function LVEF 65%, mild MR and TR, PA systolic pressure 22 mmHg
Cardiac cath 02/05/2025:
Left main: Mild diffuse atherosclerotic plaque
LAD: Known PROMOTIONS ASSISTANT 100% in distal LAD with left to left collaterals filling the apex. Previously placed mid to distal LAD stent patent with eccentric 60 to 70% stenosis proximal to stent 40% stenosis distal to stent
Circumflex: 30% ostial left circumflex, proximal left circumflex 80% calcified stenosis proximal to takeoff of OM1. OM1 85 to 90% stenosis. OM 2 vessel jailed after prior PCI in 2019 with diffuse disease 75 to 80% and a distal occlusion with left
to left collaterals. Mid circumflex into OM 3 has prior stent with mild in-stent restenosis.
RCA: 50% ostial stenosis, 30 to 40% mid stenosis
Status post percutaneous intervention of an 80 to 85% heavily calcified proximal left circumflex and an 85 to 90% ostial left circumflex flex stenosis with 1 Medtronic [place] drug-eluting stent, post IV shockwave atherectomy, postdilated using IVUS
guidance with balloon distally and proximally
Echo 03/14/25: Normal left ventricular size. LVEF 70% . Mild concentric left ventricular hypertrophy. Normal RV. Aortic valve sclerosis. Trace TR with PA pressure 25 mmHg.
Plan:
She is here for symptoms primarily of dizziness but also of chest discomfort. She has had no further chest discomfort.
She continues to be dizzy with change in position however is improved compared to yesterday. During this hospital stay she has clearly orthostatic vital signs noted. Difficult situation given she has lymphedema/vein stripping venous insufficiency
and is unable to put on support stockings. She also appears deconditioned.
She has a complex cardiac history status with CAD s/p PCI in 2019 of LAD, left circumflex, and OM 3, and most recently percutaneous intervention of an 80 to 85% heavily calcified proximal left circumflex and an 85 to 90% ostial left circumflex flex
stenosis with 1 Medtronic [place] drug-eluting stent, post IV shockwave atherectomy, postdilated using IVUS guidance with balloon distally and proximally (02/06/2025). LVEDP 24. Cath did show residual OM 2 stenosis which was IFR positive, medical
management was advised. She was started on dual antiplatelet therapy with aspirin and Plavix, carvedilol was uptitrated to 12.5 mg twice daily, she was continued on isosorbide and Lasix uptitrated for elevated LVEDP.
She unfortunately has been not able to complete cardiac rehab because of dizziness and at times chest pressure symptoms.
This admission troponins have been negative. Echo is stable without change.
In regard to complex coronary disease. Troponins are negative and EKG without acute abnormality. No chest pain recurrence. Echocardiogram without change.
-cont DAPT with ASA and Plavix
-cont antianginals Coreg , Isosorbide 60 mg daily and advance as tolerated
-However given orthostasis on 03/14 I decreased carvedilol to back to 12.5 mg twice daily (was increased to 25 twice daily this hospital stay).
-If recurrence of angina could consider Ranexa after assessment of drug to drug interactions.
- On 03/14 I also decreased Lasix from 40 mg bid to 40 mg in the morning and 20 mg in the p.m.
- proBNP remains low but may not be reflective given obesity.
-consider repeat LHC if accelerated exertional symptoms given known OM2 stenosis but best course of action is medical management.
-Telemetry personally reviewed and stable.
-Lipids are at goal on injectable cholesterol lowering.
-intolerant of statins
Dizziness
- Undergoing assessment by primary service
- CT scan pending
- Much appears to be related to orthostasis which has improved and she was able to ambulate with physical therapy today.
- CT scan of the head was negative.
Orthostatic hypotension
- Caution with changing position
- Isometric exercises reviewed yesterday and today and she is trying.
- Needs better control of diabetes
- Continue to work on deconditioning
- Needs better control of lymphedema/venous insufficiency all of which are contributing
Chronic lymphedema
-Also likely venous insufficiency which is likely contributing to chronic orthostasis
-She is unable to be apply compression stockings given mobility limitations. We did discuss zipped stockings. Perhaps evaluation by lymphedema clinic would be helpful as outpatient.
Uncontrolled diabetes
-Hbg A1c 10.3%, needs tighter control and wt loss encouraged
-Defer to primary service. Needs aggressive treatment given this likely is contributing to orthostasis
Uterine hyperplasia
-of note, she was preop w/u for ELIZABETH for uterine hyperplasia, had abnormal NST and chest pains. Post cath was advised DAPT ASA/Plavix uninterrupted for at least 3-6 mo depending on how she is clinically, then post ELIZABETH will need to resume DAPT for 1
year
Would expect she would be stable for discharge tomorrow if she continues with progress.
f/u Dr. Parry, has appointment for 03/16/2025.
Progress Note - Insurance Account Representative
Subjective
Date of Service: March 15, 2025
She denies chest pain but does have some positional dizziness but is able to sit in chair and doing well today.
Objective
Labs:
03/15/25 07:08
03/15/25 07:08
Labs
Hgb 11.5 g/dL (12.0-16.0) L 03/15/25 07:08
Hct 36.9 % (37.0-47.0) L 03/15/25 07:08
Plt Count 305 10^3/uL (130-400) 03/15/25 07:08
Sodium 136 mmol/L (135-145) 03/15/25 07:08
Potassium 4.3 mmol/L (3.5-5.1) 03/15/25 07:08
BUN 13 mg/dl (7-17) 03/15/25 07:08
Creatinine 1.0 mg/dL (0.6-1.0) 03/15/25 07:08
Glucose 258 mg/dl (70-99) H 03/15/25 07:08
Troponins
03/13/25 03/13/25 03/13/25
11:21 13:38 23:15
Troponin I < 0.012 < 0.012 < 0.012
03/14/25 03/14/25
04:10 09:47
Troponin I < 0.012 Cancelled
Vital Signs and I&O:
Vital Signs
Temp Pulse Resp BP Pulse Ox
98.3 F 73 16 147/70 100
03/15/25 11:00 03/15/25 11:00 03/15/25 11:00 03/15/25 11:00 03/15/25 11:00
Vital Signs
Temp Pulse Resp BP Pulse Ox
98.3 F 73 16 147/70 100
03/15/25 11:00 03/15/25 11:00 03/15/25 11:00 03/15/25 11:00 03/15/25 11:00
Intake & Output
03/13/25 03/14/25 03/15/25 03/16/25
06:59 06:59 06:59 06:59
Intake Total 480 / 480
Balance 480 / 480
Physical Exam
Physical Exam
General: Well developed, well nourished in NAD.
Heart: Distant heart sounds RRR, no murmurs, No S3, S4, no rubs.
Lungs: Coarse anterior breath sounds
Extremities: No clubbing, cyanosis or trace to +1 edema bilaterally.
[2025-03-15] MEDS: LASIX 20 MG PO (16:15)
[2025-03-15 16:26] LABS: Glucose - Point of Care 280 mg/dl (70-99)
[2025-03-15 21:20] LABS: Glucose - Point of Care 227 mg/dl (70-99)
[2025-03-15] MEDS: MACROBID 100 MG PO (21:59)
[2025-03-15] MEDS: NON-FORMULARY ITEM 22 UNIT SC (22:00)
[2025-03-15] MEDS: PROTONIX 40 MG PO (22:00)
[2025-03-16 03:15] VITALS: BP 151/67
[2025-03-16 06:00] VITALS: BMI 51.8
[2025-03-16] MEDS: SYNTHROID 125 MCG PO (06:37)
[2025-03-16 07:00] VITALS: BP 141/59
[2025-03-16 07:46] LABS: Glucose - Point of Care 225 mg/dl (70-99)
[2025-03-16 08:11] LABS: Hematocrit 35.2 % (37.0-47.0); Mean Corp Hgb Conc. 31.3 g/dL (33.0-37.0); Mean Corpuscular Hgb 25.5 pg (27.0-31.0); Mean Corpuscular Volume 81.7 fL (81.0-99.0); Platelet Count 261 10^3/uL (130-400); Red Blood Cell Count 4.31 10^6/uL (4.20-5.40); Red Cell Dist. Width 16.3 % (11.5-14.5); White Blood Cell Count 7.9 10^3/uL (4.8-10.8)
[2025-03-16] MEDS: NON-FORMULARY ITEM 1 INH INH (08:25)
[2025-03-16] MEDS: NOVOLOG FLEXPEN-HIGH RESISTANCE 4 UNITS SC (08:35)
[2025-03-16] MEDS: NOVOLOG FLEXPEN 10 UNITS SC ×2 (08:36→12:19)
[2025-03-16] MEDS: ZETIA 10 MG PO (08:37)
[2025-03-16] MEDS: IMDUR (EXTENDED RELEASE) 60 MG PO (08:37)
[2025-03-16] MEDS: COZAAR 50 MG PO (08:37)
[2025-03-16] MEDS: NEURONTIN 200 MG PO (08:37)
[2025-03-16] MEDS: PROVERA 10 MG PO (08:38)
[2025-03-16] MEDS: LASIX 40 MG PO (08:38)
[2025-03-16] MEDS: ZYLOPRIM 300 MG PO (08:38)
[2025-03-16] MEDS: FEOSOL 325 MG PO (08:38)
[2025-03-16] MEDS: JANUVIA 100 MG PO (08:38)
[2025-03-16] MEDS: COREG 12.5 MG PO (08:38)
[2025-03-16] MEDS: PLAVIX 75 MG PO (08:38)
[2025-03-16] MEDS: LOVENOX 60 MG SC (08:39)
[2025-03-16] MEDS: LOW STRENGTH ASPIRIN 81 MG PO (08:39)
--- NOTE | 2025-03-16 08:47 | W.PN.CARDCBS ---
Addendum entered and electronically signed by William Coreas DO 03/16/25 11:49:
I saw and examined the patient.
The Senior Credit Officer's note was reviewed and I agree with the note.
Comment:
Plan:
Cont Coreg at 12.5 mg BID.
Would allow for some permissive hypertension to avoid orthostasis
Cont reduced lasix dose
If recurrent hypotension, could reduce Losartan
Outpt follow up arranged.
Please recall if needed
Original Note:
Today's Communication / Plan
-
Continue on Coreg 12.5 mg twice a day. May need to allow for some permissive hypertension to prevent orthostasis
Continue on reduced dose of Lasix at 40 mg in a.m. and 20 mg in p.m.
Encourage isometric exercises prior to positional change
Continue aspirin, Plavix, Zetia, isosorbide, Losartan
Outpatient cardiology follow-up has been arranged
Impression / Plan
-
Impression / Plan
-
PCP: Dr. Armstrong
CDY: Va Cohen MD
Impression:
Dizziness with orthostatic vital signs
Chest pain
CAD post lithotripsy, PCI LCx x 1 JOSE D 02/05/25
Prior PCI LAD, LCX, OM3 2019
HTN
HLD
DM2
COPD
GERD/HH
FENG
Hypothyroidism
Gout
Chronic lymphedema
Morbid obesity BMI 52.6
Uterine hyperplasia
Previous cardiovascular testing:
Echo 09/27/2020: Normal biventricular size and function, LVEF 55 to 60%, moderate cLVH
Echo 10/27/2024 (at [facility]) normal biventricular size and function LVEF 65%, mild MR and TR, PA systolic pressure 22 mmHg
Cardiac cath 02/05/2025:
Left main: Mild diffuse atherosclerotic plaque
LAD: Known ANGLESMITH 100% in distal LAD with left to left collaterals filling the apex. Previously placed mid to distal LAD stent patent with eccentric 60 to 70% stenosis proximal to stent 40% stenosis distal to stent
Circumflex: 30% ostial left circumflex, proximal left circumflex 80% calcified stenosis proximal to takeoff of OM1. OM1 85 to 90% stenosis. OM 2 vessel jailed after prior PCI in 2019 with diffuse disease 75 to 80% and a distal occlusion with left
to left collaterals. Mid circumflex into OM 3 has prior stent with mild in-stent restenosis.
RCA: 50% ostial stenosis, 30 to 40% mid stenosis
Status post percutaneous intervention of an 80 to 85% heavily calcified proximal left circumflex and an 85 to 90% ostial left circumflex flex stenosis with 1 Medtronic [place] drug-eluting stent, post IV shockwave atherectomy, postdilated using IVUS
guidance with balloon distally and proximally
Echo 03/14/25: Normal left ventricular size. LVEF 70% . Mild concentric left ventricular hypertrophy. Normal RV. Aortic valve sclerosis. Trace TR with PA pressure 25 mmHg.
Plan:
She is here for symptoms primarily of dizziness but also of chest discomfort.
She has had no further chest discomfort and was able to walk 30-50 feet yesterday w/o CP.
Improving dizziness (primarily occurs with change in position). Initially during this hospital stay she had symptomatic orthostasis via orthostatic vital signs which were worse after carvedilol was increased to 25 mg twice a day. Symptoms seem to
have improved with reduction of carvedilol back to 12.5 mg twice a day. Negative orthostatic vitals on the evening of 03/15/2025 but was orthostatic again with vitals in am of 03/16/25 were still positive with mild dizziness. Dropped from supine 130/96
to sitting 91/59. May need to allow for permissive hypertension to prevent orthostatic hypotension.
On 03/14 Lasix was decreased from 40 mg bid to 40 mg in the morning and 20 mg in the p.m. Continue on reduced dose.
ProBNP remains low but may not be reflective given obesity.
Difficult situation given she has lymphedema/vein stripping venous insufficiency and is unable to put on support stockings. She also appears deconditioned.
Encouraged patient to do isometric exercises with positional change and utilize zip up compression stockings.
She has a complex cardiac history status with CAD s/p PCI in 2019 of LAD, left circumflex, and OM 3, and most recently percutaneous intervention of an 80 to 85% heavily calcified proximal left circumflex and an 85 to 90% ostial left circumflex flex
stenosis with 1 Medtronic [place] drug-eluting stent, post IV shockwave atherectomy, postdilated using IVUS guidance with balloon distally and proximally (02/06/2025). LVEDP 24. Cath did show residual OM 2 stenosis which was IFR positive, medical
management was advised. She was started on dual antiplatelet therapy with aspirin and Plavix, carvedilol was uptitrated to 12.5 mg twice daily, she was continued on isosorbide and Lasix uptitrated for elevated LVEDP.
She unfortunately has been not able to complete cardiac rehab because of dizziness and at times chest pressure symptoms.
This admission troponins have been negative. Echo is stable without change.
In regard to complex coronary disease. Troponins are negative and EKG without acute abnormality. No chest pain recurrence. Echocardiogram without change.
-cont DAPT with ASA and Plavix
-cont antianginals Coreg , Isosorbide 60 mg daily and advance as tolerated
-However, given orthostasis on 03/14 Carvedilol to back to 12.5 mg twice daily (was increased to 25 twice daily this hospital stay).
-If recurrence of angina could consider Ranexa after assessment of drug to drug interactions.
-consider repeat LHC if accelerated exertional symptoms given known OM2 stenosis but best course of action is medical management.
-Telemetry personally reviewed and stable.
-Lipids are at goal on injectable cholesterol lowering.
-intolerant of statins
Dizziness
- Undergoing assessment by primary service
- CT scan 03/14/2025 showed no acute intracranial abnormality
- Much appears to be related to orthostasis which has improved and she was able to ambulate with physical therapy 03/14 and 03/15.
- CT scan of the head was negative.
Orthostatic hypotension
- Caution with changing position
- Isometric exercises reviewed yesterday and today and she is trying.
- Needs better control of diabetes
- Continue to work on deconditioning
- Needs better control of lymphedema/venous insufficiency all of which are contributing
Chronic lymphedema
-Also likely venous insufficiency which is likely contributing to chronic orthostasis
-She is unable to be apply compression stockings given mobility limitations. We did discuss zipped stockings. Perhaps evaluation by lymphedema clinic would be helpful as outpatient.
Uncontrolled diabetes
-Hbg A1c 10.3%, needs tighter control and wt loss encouraged
-Defer to primary service. Needs aggressive treatment given this likely is contributing to orthostasis
Uterine hyperplasia
-of note, she was preop w/u for ELIZABETH for uterine hyperplasia, had abnormal NST and chest pains. Post cath was advised DAPT ASA/Plavix uninterrupted for at least 3-6 mo depending on how she is clinically, then post ELIZABETH will need to resume DAPT for 1
year
f/u Dr. Cohen, outpatient follow-up has been scheduled for 03/19/2025
Patient stable for discharge from cardiac standpoint
Progress Note - Tool Crib Clerk
Subjective
Date of Service: March 16, 2025
Patient seen and examined. Feeling better. Yesterday she was able to walk short distance around the floor without chest pain or dizziness. This am mild dizziness when she went from sitting to standing which was very brief. Overall she reports
feeling much better.
Objective
Labs:
03/16/25 07:30
Labs
Hgb 11.0 g/dL (12.0-16.0) L 03/16/25 07:30
Hct 35.2 % (37.0-47.0) L 03/16/25 07:30
Plt Count 261 10^3/uL (130-400) 03/16/25 07:30
Sodium 136 mmol/L (135-145) 03/15/25 07:08
Potassium 4.3 mmol/L (3.5-5.1) 03/15/25 07:08
BUN 13 mg/dl (7-17) 03/15/25 07:08
Creatinine 1.0 mg/dL (0.6-1.0) 03/15/25 07:08
Glucose 258 mg/dl (70-99) H 03/15/25 07:08
Troponins
03/13/25 03/13/25 03/13/25
11:21 13:38 23:15
Troponin I < 0.012 < 0.012 < 0.012
03/14/25 03/14/25
04:10 09:47
Troponin I < 0.012 Cancelled
Vital Signs and I&O:
Vital Signs
Temp Pulse Resp BP Pulse Ox
98.0 F 76 16 141/59 95
03/16/25 07:00 03/16/25 07:00 03/16/25 08:27 03/16/25 07:00 03/16/25 08:27
Vital Signs
Temp Pulse Resp BP Pulse Ox
98.0 F 76 16 141/59 95
03/16/25 07:00 03/16/25 07:00 03/16/25 08:27 03/16/25 07:00 03/16/25 08:27
Intake & Output
03/14/25 03/15/25 03/16/25 03/17/25
06:59 06:59 06:59 06:59
Intake Total 480 / 480 960 / 960
Balance 480 / 480 960 / 960
Physical Exam
Physical Exam
GEN: No distress, awake, Ox3, morbidly obese
HEENT: supple, anicteric, mmm
LUNGS: CTA, no wheezes/rales
CV: Reg, S1/S2,no murmur, rub or gallop
ABD: Obese, soft, BS+, NT/ND
EXT: +1 bilateral lower extremity edema, no clubbing or cyanosis
NEURO: Gross non-focal
SKIN: No rash, warm, dry, pink
[2025-03-16 08:50] VITALS: BP 116/65; BP 130/96; BP 91/59; PULSE 74; PULSE 76; PULSE 82
[2025-03-16 09:02] LABS: Blood Urea Nitrogen 13 mg/dl (7-17); Calcium 9.3 mg/dl (8.4-10.2); Carbon Dioxide 24 mmol/L (22-30); Chloride 106 mmol/L (98-107); Estimated Creatinine Clearance 82 ml/min; Glucose 217 mg/dl (70-99); Magnesium 1.5 mg/dl (1.6-2.3); Sodium 138 mmol/L (135-145); eGFR > 60.00
[2025-03-16 11:00] VITALS: BP 138/58
--- NOTE | 2025-03-16 11:44 | W.DCSUMMARY ---
Discharge Summary
Discharge Data
Date of Admission: 03/15/25
Date of Discharge: 03/16/25
-
Pending Results: No
Hospital Course
64y F with PMH significant for ASCVD, hypertension and DM-II
Presented with dizziness and dyspnea on exertion since left heart catheterization that was performed on 02/05. Was evaluated by cardiology which he who found that she was experiencing orthostatic hypotension. Medications were adjusted with decrease
12.5 twice a day and 40 mg Lasix in the morning and 20 mg Lasix at night. Was also recommended compression stockings with zippers, continue isometric exercises outpatient lymphedema assessment and follow-up. Outpatient cardiology follow-up which
cardiology has noted appointment on .
Seen and examined on the day of discharge which was 03/16/2025. No new complaints. No acute overnight events.
Improved symptomatology. Dizziness resolved. Sitting in bedside chair eating breakfast.
NAD
Scleral Anicteric
MMM
No JVD
CTABL
RRR, S1/S2
Morbidly obese, soft, NT, ND, BS+
Warm, Dry
AAOx3
Calm
More than 30 minutes spent in discharge including
Final examination of the patient
Summarizing hospital stay
Instructions for continuing care to all relevant caregivers
Preparation of discharge records, prescriptions, and referral forms
Total time spent (in minutes): 33mins
Discharge Plan
-
Patient Disposition: Home (Routine Discharge)
Discharge Diagnosis/Procedures: Orthostatsis
Condition: Good
Diet: As tolerated
Activity: As tolerated
Other Services: Cardiac Rehab
Activity Restrictions/Additional Instructions:
Presented with dizziness and dyspnea on exertion since left heart catheterization that was performed on 02/05. Was evaluated by cardiology which he who found that she was experiencing orthostatic hypotension. Medications were adjusted with decrease
12.5 twice a day and 40 mg Lasix in the morning and 20 mg Lasix at night. Was also recommended compression stockings with zippers, continue isometric exercises outpatient lymphedema assessment and follow-up. Outpatient cardiology follow-up which
cardiology has noted appointment on
Referrals:
Crystal Monroe DO [Family Provider, Family Practice]
Edgardo Florence,Va Douglass MD [Non-Admitting Privileges, Cardiology] - 03/19/25 9:00 am
Referral Note: You have cardiology follow up with Dr. Cohen on March 19 at 9 am. If you are unable to make this appointment please call
[phone] to reschedule
Prescriptions:
New
furosemide 40 mg Tablet
40 mg PO DAILY Qty: 30 0RF
furosemide 20 mg Tablet
20 mg PO DAILY@1600 Qty: 30 0RF
Continued
cetirizine 10 MG tablet
10 mg PO DAILY
allopurinol 300 MG tablet
300 mg PO DAILY
gabapentin 100 MG capsule
200 mg PO TID
cholecalciferol (vitamin D3) [Vitamin D3] 1,000 UNIT capsule
50,000 unit PO WE
aspirin 81 MG tablet,chewable
81 mg PO DAILY 0RF
albuterol sulfate [Ventolin HFA] 90 MCG/PUFF HFA aerosol inhaler
2 puff inhalation Q4HPRN PRN (Reason: sob)
ezetimibe 10 MG tablet
10 mg PO DAILY
levothyroxine 125 MCG tablet
125 mcg PO DAILY@06
nitrofurantoin 100 mg Capsule
100 mg PO .1900
vitamin E 400 unit Tablet
400 unit PO DAILY
mirabegron [Myrbetriq] 50 mg Tablet Extended Release 24 Hr
50 mg PO DAILY
Praluent Pen 150 mg/mL Pen Injector
150 mg SC Q14D
losartan [Cozaar] 50 mg Tablet
50 mg PO BID
cyclobenzaprine 10 mg Tablet
10 mg PO TID PRN (Reason: muscle spasms )
pantoprazole 40 mg Tablet,Delayed Release (Dr/Ec)
40 mg PO HS
ferrous sulfate 325 mg (65 mg iron) Tablet
325 mg PO DAILY
nitroglycerin 0.4 mg Tablet, Sublingual
0.4 mg SUBLINGUAL Q5-15M PRN (Reason: chest pain)
hydrocodone-acetaminophen 7.5-300 mg Tablet
1 tab PO Q6H PRN (Reason: bone pain)
Januvia 100 mg Tablet
100 mg PO DAILY
medroxyprogesterone [Provera] 10 mg tablet
10 mg PO TID
clopidogrel 75 mg tablet
75 mg PO DAILY Qty: 90 10RF
isosorbide mononitrate 60 mg Tablet Extended Release 24 Hr
60 mg PO DAILY
carvedilol 12.5 mg Tablet
12.5 mg PO BID Qty: 60 5RF
insulin degludec [Tresiba FlexTouch U-100] 100 unit/mL (3 mL) Insulin Pen
45 unit SC HS
fluticasone furoate-vilanterol [Breo Ellipta] 200-25 mcg/dose Blister With Device
1 inh INHALATION DAILY
insulin aspart U-100 [Novolog U-100 Insulin aspart] 1,000 UNITS/10 ML solution
22 units SC AC
Discontinued
furosemide [Lasix] 40 MG tablet
40 mg PO BID Qty: 0 0RF
Discharge Orders:
Discharge Patient (As Directed); Ordered 03/16/25
Ordered By: Gera Shankar
Discharge Date and Time
Print Language: KYRGYZ
[2025-03-16 11:49] LABS: Glucose - Point of Care 290 mg/dl (70-99)
--- NOTE | 2025-03-16 11:49 | CM ---
Patient seen at bedside in [facility]. Patient stated that she is for discharge home today and has a ride home. Patient completed IMM and signed form placed on chart. CM will continue to follow for discharge planning needs.
Plan; home with no needs.
[2025-03-16] MEDS: NOVOLOG FLEXPEN-HIGH RESISTANCE 7 UNITS SC (12:18)
== END 2025-03-16 13:52 | disposition home or self-care (01) | DRG 312 ==
LOC: 4 WEST ACU 16:41
PROVIDERS: Emergency Medicine; Internal Medicine; Internal Medicine Cardiovascular Disease; ADMITTING PHYSICIAN Hospitalist; ATTENDING PHYSICIAN Hospitalist; EMERGENCY PHYSICIAN Student in an Organized Health Care Education/Training Program; FAMILY PHYSICIAN Family Medicine
DX: I95.1 Orthostatic hypotension (principal); Z68.43 Body mass index [BMI] 50.0-59.9, adult; I10 Essential (primary) hypertension; I25.10 Atherosclerotic heart disease of native coronary artery without angina pectoris; E66.01 Morbid (severe) obesity due to excess calories; Z79.84 Long term (current) use of oral hypoglycemic drugs; J45.909 Unspecified asthma, uncomplicated; K21.9 Gastro-esophageal reflux disease without esophagitis; E03.9 Hypothyroidism, unspecified; I89.0 Lymphedema, not elsewhere classified; D50.9 Iron deficiency anemia, unspecified; Z95.5 Presence of coronary angioplasty implant and graft; Z79.82 Long term (current) use of aspirin; E78.00 Pure hypercholesterolemia, unspecified; Z79.4 Long term (current) use of insulin; Z79.890 Hormone replacement therapy; Z79.899 Other long term (current) drug therapy
CPT/HCPCS: 70450; 80048; 80053; 82962; 83735; 83880; 84100; 84443; 84484; 85025; 85027; 93005; 94640; 97166; 97530; 99284; Q9957

== ENCOUNTER 2025-04-22 14:43 | Emergency (ER) | payer MEDICARE, SELFPAY ==
[2025-04-22 15:00] LABS: Hematocrit 38.3 % (37.0-47.0); Hemoglobin 12.0 g/dL (12.0-16.0); Mean Corp Hgb Conc. 31.3 g/dL (33.0-37.0); Mean Corpuscular Volume 81.0 fL (81.0-99.0); Nucleated Red Blood Cells % 0 %; Platelet Count 284 10^3/uL (130-400); Red Cell Dist. Width 14.8 % (11.5-14.5)
[2025-04-22 15:23] LABS: ALT (SGPT) 17 U/L (0-35); AST (SGOT) 21 U/L (14-36); Albumin 4.0 g/dl (3.5-5.0); Alkaline Phosphatase 53 U/L (38-126); Blood Urea Nitrogen 14 mg/dl (7-17); Calcium 9.7 mg/dl (8.4-10.2); Carbon Dioxide 19 mmol/L (22-30); Chloride 109 mmol/L (98-107); Glucose 208 mg/dl (70-99); Potassium 5.2 mmol/L (3.5-5.1); Sodium 136 mmol/L (135-145); Total Protein 7.0 g/dl (6.3-8.2); eGFR 55.42
--- NOTE | 2025-04-22 20:15 | ED.GENMED ---
History of Present Illness
General
Chief Complaint: Skin Problem
Time Seen by Provider: 04/22/25 18:52
History of Present Illness
History of Present Illness:
64-year-old female with history of CHF, CAD, hypertension, hyperlipidemia, and lower extremity venous insufficiency presents to the emergency department for evaluation of lower extremity edema for the past week. She notes that the left foot in
particular was red and she was started on Bactrim by her primary care physician, she feels that the symptoms are worsening. Denies any fevers or chills. She is able to walk at her baseline
Past History
Past History
ED Past Medical History: HTN, Hypercholesterolemia, NIDDM, Other (lymphedema) and Other (Calculus cholecystitis)
ED Past Surgical History: Cardiac, Gynecological and Other (cataracts. Vein surgery)
Social History
Tobacco: Non-smoker
Alcohol: None
Drug: None
Personal:
Living: with family
Employment: Retired
Family History
Family History: Other (Noncontributory)
Review of Systems
Review of Systems
Allergies reviewed?: Yes
All Other Systems: ROS reviewed and negative except as documented in HPI and ROS
Phy Exam
Physical Exam
Physical Exam:
GEN: Well appearing, NAD, WDWN
HEENT: Oral mucosa moist, no scleral icterus
Cardiac: Regular rate
Lung: No respiratory distress, no tachypnea
MSK: Severe bilateral lower extremity edema, patchy petechial lesions scattered across the legs, no overt erythema or warmth
Skin: Good color, no pallor or jaundice, no rashes
Neuro: AO x3, moves all extremities freely
Psych: Calm, cooperative
Course
Orders/Labs/Results
Orders:
Orders
04/22/25 14:54
Complete Blood Count/With Diff Urgent
Comprehensive Metabolic Panel Urgent
04/22/25 19:03
Venous Doppler Lwr Ext Bilat [US Periph Venous LOWER Ext Ian] Urgent
Comment:
Reason For Exam: BLE edema
Abnormal Lab Results
04/22/25
14:54
MCH 25.4 L pg
(27.0-31.0)
MCHC 31.3 L g/dL
(33.0-37.0)
RDW 14.8 H %
(11.5-14.5)
Absolute Monos (auto) 0.8 H 10^3/uL
(0.1-0.6)
Monocytes % 12.0 H %
(1.7-9.3)
Potassium 5.2 H mmol/L
(3.5-5.1)
Chloride 109 H mmol/L
(98-107)
Carbon Dioxide 19 L mmol/L
(22-30)
Creatinine 1.1 H mg/dL
(0.6-1.0)
Glucose 208 H mg/dl
(70-99)
04/22/25 14:54
04/22/25 14:54
Vital Signs
Initial and Last Documented VS:
Initial Vital Signs
Temp Pulse Resp Pulse Ox
98.8 F 74 20 97
04/22/25 14:44 04/22/25 14:44 04/22/25 14:44 04/22/25 14:44
Last Documented Vital Signs
Temp Pulse Resp Pulse Ox
98.8 F 74 20 97
04/22/25 14:44 04/22/25 14:44 04/22/25 14:44 04/22/25 20:16
MDM/Problems Addressed
MDM/Problems Addressed:
Patient has no findings on exam suspicious for cellulitis, I have encouraged her to complete her full course of antibiotics given that she has been on this for 6 days. Most likely severe venous insufficiency, will recommend up titration of diuretic
briefly
*Pulse Oximetry
SaO2: 97
Oxygen Mode of Delivery: Room air
Patient hypoxic: no
*Critical Care Note
Total Time (30-74mins, 75-104mins- exclusive of procedures): Not Applicable
ED Attending Note
-
Portions of this chart may have been created with voice recognition software.� Occasional wrong word or��sound alike� substitutions may have occurred due to the inherent limitations of voice recognition software.
Discharge Plan
Departure
Patient Disposition: Home (Routine Discharge)
Date of Disposition: 04/22/25
Time of Disposition: 21:53
Patient with high blood pressure during this ER visit?: No
Discharge Problem:
Bilateral leg edema, Venous stasis dermatitis
Instructions: Lymphedema
Prescriptions:
No Action
cetirizine 10 MG tablet
10 mg PO DAILY
allopurinol 300 MG tablet
300 mg PO DAILY
gabapentin 100 MG capsule
200 mg PO TID
ezetimibe 10 MG tablet
10 mg PO DAILY
levothyroxine 125 MCG tablet
125 mcg PO DAILY
mirabegron [Myrbetriq] 50 mg Tablet Extended Release 24 Hr
50 mg PO DAILY
Praluent Pen 150 mg/mL Pen Injector
150 mg SC Q2W
losartan [Cozaar] 50 mg Tablet
50 mg PO BID
cyclobenzaprine 10 mg Tablet
10 mg PO TID PRN (Reason: muscle spasms )
pantoprazole 40 mg Tablet,Delayed Release (Dr/Ec)
40 mg PO HS
hydrocodone-acetaminophen 7.5-300 mg Tablet
1 tab PO ONCE PRN (Reason: severe pain)
Patient Comments:
04/22/2025, per pt., she filled this med. years ago and still has some left; used [facility] records from 02/05/2025 to confirm this med.
Januvia 100 mg Tablet
100 mg PO DAILY
medroxyprogesterone [Provera] 10 mg tablet
10 mg PO TID
clopidogrel 75 mg tablet
75 mg PO DAILY Qty: 90 10RF
isosorbide mononitrate 60 mg Tablet Extended Release 24 Hr
60 mg PO DAILY
carvedilol 12.5 mg Tablet
12.5 mg PO BID Qty: 60 5RF
insulin degludec [Tresiba FlexTouch U-100] 100 unit/mL (3 mL) Insulin Pen
45 unit SC HS
fluticasone furoate-vilanterol [Breo Ellipta] 200-25 mcg/dose Blister With Device
1 inh INHALATION R DAILY
fluconazole 150 mg Tablet
150 mg PO QWEEK
Patient Comments:
04/22/2025, filled on 04/16/2025 and instructed to take 1 tablet once a week for 2 weeks.
sulfamethoxazole-trimethoprim 800-160 mg Tablet
1 tab PO BID
Patient Comments:
04/22/2025, filled on 04/16/2025 and instructed to take 1 tablet BID for 10 days.
aspirin 81 mg Tablet,Delayed Release (Dr/Ec)
81 mg PO DAILY
vitamin E 268 mg (400 unit) Capsule
268 mg PO NOON
insulin aspart U-100 [Novolog FlexPen U-100 Insulin] 100 unit/mL (3 mL) Insulin Pen
22 unit SC AC
nitrofurantoin monohyd/m-cryst 100 mg Capsule
100 mg PO QPM
cholecalciferol (vitamin D3) 1,250 mcg (50,000 unit) Capsule
1,250 mcg PO WE
ferrous sulfate 324 mg (65 mg iron) Tablet,Delayed Release (Dr/Ec)
324 mg PO DAILY
furosemide 40 mg tablet
20 mg PO DAILY
Referrals:
Crystal Monroe DO [Family Provider, Family Practice]
Activity Restrictions/Additional Instructions:
Call the [facility] at :
[phone]
Increase your lasix to 40mg daily for 3 days then resume your normal 20mg dosing
Interventions
Interventions:
*Risk Screen - Suicide Last Done: 04/22/25 14:44
*General Assessment Last Done: 04/22/25 14:44
*Neglect/Abuse Screening Last Done: 04/22/25 14:44
*Nursing Disposition Last Done: 04/22/25 22:27
Discharge Date and Time
Discharge Date/Time: 04/22/25 22:28
Print Language: WELSH
== END 2025-04-22 22:28 | disposition home or self-care (01) ==
LOC: EMR 14:43
PROVIDERS: Emergency Medicine; EMERGENCY PHYSICIAN Emergency Medicine; FAMILY PHYSICIAN Family Medicine
DX: R60.0 Localized edema (principal); R23.3 Spontaneous ecchymoses; I87.2 Venous insufficiency (chronic) (peripheral); I11.0 Hypertensive heart disease with heart failure; I50.9 Heart failure, unspecified; I25.10 Atherosclerotic heart disease of native coronary artery without angina pectoris; E11.9 Type 2 diabetes mellitus without complications; E78.00 Pure hypercholesterolemia, unspecified
CPT/HCPCS: 99284; 80053; 85025; 93970

== ENCOUNTER 2025-08-06 14:57 | Emergency (ER) | payer MEDICARE, SELFPAY ==
[2025-08-06 15:13] VITALS: BP 181/100
[2025-08-06 16:44] VITALS: BP 159/82
--- NOTE | 2025-08-06 16:57 | ED.GENMED ---
History of Present Illness
General
Chief Complaint: Fall
Source: patient
Exam Limitations: none
Time Seen by Provider: 08/06/25 16:56
History of Present Illness
History of Present Illness:
65yoF with a history of coronary artery disease, CHF, hypertension, hyperlipidemia, insulin-dependent diabetes, obesity, and COPD presenting for evaluation after a fall. Patient's blood pressure was elevated this morning. She called her
asphalt smoother to told her to come in for an appointment. She was trying to get into the exam table when she excellently fell onto her right side. The nurse at the office reported that she her head. There was no loss of consciousness. Patient is
currently complaining of headache, neck pain, and right hip pain. She takes aspirin and Plavix. The asphalt smoother is planning to schedule an outpatient cardiac catheterization but this is not scheduled yet.
Past History
Past History
ED Past Medical History: HTN, Hypercholesterolemia, NIDDM, Other (lymphedema) and Other (Calculus cholecystitis)
ED Past Surgical History: Cardiac, Gynecological and Other (cataracts. Vein surgery)
Social History
Tobacco: Non-smoker
Alcohol: None
Drug: None
Personal:
Living: with family
Employment: Retired
Family History
Family History: Other (Noncontributory)
Phy Exam
General Physical Exam
General Presentation: well appearing and no apparent distress
General Skin: warm and dry
General Habitus: normal
General Mental: alert
ENT Exam
ENT Exam: normocephalic and other (No external signs of head trauma. No cervical spine tenderness.)
Eye Exam
Eye Exam: PERRL and conjunctiva normal
Pulmonary Exam
Pulmonary Exam: lungs clear, no respiratory distress, no rales, no crackles, no rhonchi and no wheezing
Gastrointestinal Exam
Gastrointestinal Exam: soft, non distended and other (+Tenderness in R abdomen and R lower ribcage. No skin changes.)
Neurological Exam
Neurological Exam: alert
[place] Coma Scale
Eye Opening: Spontaneous
Verbal Response: Oriented
Motor Response: Obeys Commands
GCS Total Score: 15
Musculoskeletal Exam
Musculoskeletal Exam: other (+tenderness in R lateral hip. No deformity. Flexion mildly decreased 2/2 pain.)
Skin Exam
Skin Exam: normal color and warm/dry
Psychiatric Exam
Psychiatric Exam: normal mood/affect
Course
Orders/Labs/Results
Orders:
Orders
08/06/25 15:17
Electrocardiogram (*1) Urgent
Reason for Study: Other
Other Reason for Exam: ischemic changes and pt fell
CT Cervical Spine W/o Iv Contr Urgent
Comment:
Reason For Exam: fall and having neck discomfort
CT Head W/o Iv Contrast Urgent
Comment: on thinners
Reason For Exam: fall and hit head
08/06/25 15:18
EKG- Treatment ONCE
08/06/25 17:11
CT Abd/pelvis W Iv Cont Urgent
Comment:
Reason For Exam: R sided abd pain, fall
Hydrocodone 5/APAP 325 [Rug[place] 5/325] 1 tablet PO NOW STA
CR Femur - Right Min 2 Vw Urgent
Comment:
Reason For Exam: R hip pain, fall
CR Pelvis - 1 Or 2 Views Urgent
Comment:
Reason For Exam: R hip pain, fall
CR Ribs-right 3 Vw W/pa Chest* Urgent
Comment:
Reason For Exam: R lower rib pain, fall
08/06/25 17:40
Complete Blood Count/With Diff Urgent
Comprehensive Metabolic Panel Urgent
Abnormal Lab Results
08/06/25
17:40
MCH 25.9 L pg
(27.0-31.0)
MCHC 30.5 L g/dL
(33.0-37.0)
RDW 15.4 H %
(11.5-14.5)
Abs Immat Gran (auto) 0.1 H 10^3/uL
(0-0.05)
Absolute Monos (auto) 0.8 H 10^3/uL
(0.1-0.6)
Immature Gran % 0.6 H %
(0-0.5)
Glucose 142 H mg/dl
(70-99)
08/06/25 17:40
08/06/25 17:40
Vital Signs
Initial and Last Documented VS:
Initial Vital Signs
Temp Pulse Resp BP Pulse Ox
98.7 F 80 16 181/100 98
08/06/25 15:13 08/06/25 15:13 08/06/25 15:13 08/06/25 15:13 08/06/25 15:13
Last Documented Vital Signs
Temp Pulse Resp BP Pulse Ox
98.7 F 90 18 170/90 97
08/06/25 15:13 08/06/25 20:14 08/06/25 20:14 08/06/25 20:14 08/06/25 20:14
MDM/Problems Addressed
Differential Diagnosis Includes:
65yoF here after a fall at a cardiology office appt today. Attempted to sit on the exam table but fell. Landed on R hip. +head strike. C/o headache, neck pain, R hip pain. Also has R sided abd/rib tenderness on exam. She is hypertensive with
otherwise normal vital signs. Differential diagnosis includes but is not limited to: Closed head injury, concussion, fracture, intracranial hemorrhage
Initial ED plan: CT head/cervical spine obtained in triage which are negative. Will check basic labs, CT abdomen, rib x-rays, and pelvic/R femur x-rays.
*Pulse Oximetry
SaO2: 98
Oxygen Mode of Delivery: Room air
Patient hypoxic: no
*EKG
Interpreted by ED Provider?: Yes
EKG Intrepretation Date: 08/06/25
Heart Rate: 78
Rate: normal
Rhythm: sinus
[place]: normal axis
Interval: normal interval
QRS Pattern: normal QRS
Ischemia: no ischemia
*Critical Care Note
Total Time (30-74mins, 75-104mins- exclusive of procedures): Not Applicable
Update Note
Update Note:
Labs unremarkable. Remainder of imaging is negative for traumatic injuries. CT abdomen shows a severely thickened endometrium incidentally. Findings discussed with patient. She states this is a known finding and she has had multiple D&Cs and has
been diagnosed with endometrial hyperplasia. Last D&C was about a year ago and patient is maintained on daily Provera. Patient is stable for discharge and she is eager to go home.
ED Attending Note
-
Portions of this chart may have been created with voice recognition software.� Occasional wrong word or��sound alike� substitutions may have occurred due to the inherent limitations of voice recognition software.
Discharge Plan
Departure
Patient Disposition: Home (Routine Discharge)
Date of Disposition: 08/06/25
Time of Disposition: 19:47
Patient with high blood pressure during this ER visit?: Yes
Discharge Problem:
Accidental fall, Closed head injury, Acute pain of right hip
Instructions: Preventing falls in adults
Prescriptions:
No Action
cetirizine 10 MG tablet
10 mg PO DAILY
allopurinol 300 MG tablet
300 mg PO DAILY
gabapentin 100 MG capsule
200 mg PO TID
ezetimibe 10 MG tablet
10 mg PO DAILY
levothyroxine 125 MCG tablet
125 mcg PO DAILY
mirabegron [Myrbetriq] 50 mg Tablet Extended Release 24 Hr
50 mg PO DAILY
Praluent Pen 150 mg/mL Pen Injector
150 mg SC Q2W
losartan [Cozaar] 50 mg Tablet
50 mg PO BID
cyclobenzaprine 10 mg Tablet
10 mg PO TID PRN (Reason: muscle spasms )
pantoprazole 40 mg Tablet,Delayed Release (Dr/Ec)
40 mg PO HS
hydrocodone-acetaminophen 7.5-300 mg Tablet
1 tab PO ONCE PRN (Reason: severe pain)
Patient Comments:
04/22/2025, per pt., she filled this med. years ago and still has some left; used [facility] records from 02/05/2025 to confirm this med.
Januvia 100 mg Tablet
100 mg PO DAILY
medroxyprogesterone [Provera] 10 mg tablet
10 mg PO TID
clopidogrel 75 mg tablet
75 mg PO DAILY Qty: 90 10RF
isosorbide mononitrate 60 mg Tablet Extended Release 24 Hr
60 mg PO DAILY
carvedilol 12.5 mg Tablet
12.5 mg PO BID Qty: 60 5RF
insulin degludec [Tresiba FlexTouch U-100] 100 unit/mL (3 mL) Insulin Pen
45 unit SC HS
fluticasone furoate-vilanterol [Breo Ellipta] 200-25 mcg/dose Blister With Device
1 inh INHALATION R DAILY
fluconazole 150 mg Tablet
150 mg PO QWEEK
Patient Comments:
04/22/2025, filled on 04/16/2025 and instructed to take 1 tablet once a week for 2 weeks.
sulfamethoxazole-trimethoprim 800-160 mg Tablet
1 tab PO BID
Patient Comments:
04/22/2025, filled on 04/16/2025 and instructed to take 1 tablet BID for 10 days.
aspirin 81 mg Tablet,Delayed Release (Dr/Ec)
81 mg PO DAILY
vitamin E 268 mg (400 unit) Capsule
268 mg PO NOON
insulin aspart U-100 [Novolog FlexPen U-100 Insulin] 100 unit/mL (3 mL) Insulin Pen
22 unit SC AC
nitrofurantoin monohyd/m-cryst 100 mg Capsule
100 mg PO QPM
cholecalciferol (vitamin D3) 1,250 mcg (50,000 unit) Capsule
1,250 mcg PO WE
ferrous sulfate 324 mg (65 mg iron) Tablet,Delayed Release (Dr/Ec)
324 mg PO DAILY
furosemide 40 mg tablet
20 mg PO DAILY
Referrals:
Crystal Monroe DO [Family Provider, Family Practice]
Activity Restrictions/Additional Instructions:
Please follow-up with your family doctor. Return to the ER with any new or worsening symptoms.
Interventions
Interventions:
*Risk Screen - Suicide Last Done: 08/06/25 15:13
*General Assessment Last Done: 08/06/25 20:07
*Neglect/Abuse Screening Last Done: 08/06/25 15:13
*ED- Fall Risk Assessment Last Done: 08/06/25 20:07
*ED COVID-19 Vaccine History Last Done: 08/06/25 20:08
*ED Influenza Vaccine History Last Done: 08/06/25 20:07
*Nursing Disposition Last Done: 08/06/25 20:14
ED-Musculoskeletal Assessment Last Done: 08/06/25 18:08
ED- Neurological Assessment Last Done: 08/06/25 18:08
ED-Skin Assessment Last Done: 08/06/25 18:08
Discharge Date and Time
Discharge Date/Time: 08/06/25 20:14
Print Language: FAROESE
[2025-08-06 17:00] VITALS: BP 171/82
[2025-08-06] MEDS: NORCO 5/325 1 TABLET PO (17:47)
[2025-08-06 17:58] LABS: Hematocrit 41.6 % (37.0-47.0); Hemoglobin 12.7 g/dL (12.0-16.0); Mean Corp Hgb Conc. 30.5 g/dL (33.0-37.0); Mean Corpuscular Volume 84.7 fL (81.0-99.0); Nucleated Red Blood Cells % 0 %; Platelet Count 292 10^3/uL (130-400); Red Cell Dist. Width 15.4 % (11.5-14.5)
[2025-08-06 18:05] VITALS: BP 157/72
[2025-08-06 18:06] VITALS: BMI 55.6
[2025-08-06 18:10] LABS: ALT (SGPT) 15 U/L (0-35); AST (SGOT) 15 U/L (14-36); Albumin 4.0 g/dl (3.5-5.0); Alkaline Phosphatase 70 U/L (38-126); Blood Urea Nitrogen 13 mg/dl (7-17); Calcium 9.6 mg/dl (8.4-10.2); Carbon Dioxide 29 mmol/L (22-30); Chloride 105 mmol/L (98-107); Estimated Creatinine Clearance 106 ml/min; Glucose 142 mg/dl (70-99); Potassium 4.3 mmol/L (3.5-5.1); Sodium 138 mmol/L (135-145); Total Protein 7.1 g/dl (6.3-8.2); eGFR > 60.00
[2025-08-06 20:14] VITALS: BP 170/90
== END 2025-08-06 20:14 | disposition home or self-care (01) ==
LOC: EMR 14:57
PROVIDERS: Physician Assistant; EMERGENCY PHYSICIAN Emergency Medicine; FAMILY PHYSICIAN Family Medicine
DX: S09.90XA Unspecified injury of head, initial encounter (principal); M25.551 Pain in right hip; E11.9 Type 2 diabetes mellitus without complications; I25.10 Atherosclerotic heart disease of native coronary artery without angina pectoris; I11.0 Hypertensive heart disease with heart failure; I50.9 Heart failure, unspecified; E78.00 Pure hypercholesterolemia, unspecified; J44.9 Chronic obstructive pulmonary disease, unspecified; E66.9 Obesity, unspecified; Z68.43 Body mass index [BMI] 50.0-59.9, adult; I89.0 Lymphedema, not elsewhere classified; Z79.82 Long term (current) use of aspirin; Z79.02 Long term (current) use of antithrombotics/antiplatelets; Z79.84 Long term (current) use of oral hypoglycemic drugs; Z79.4 Long term (current) use of insulin; W19.XXXA Unspecified fall, initial encounter; Y92.531 Health care provider office as the place of occurrence of the external cause
CPT/HCPCS: 99284; 70450; 71101; 72125; 72170; 73552; 74177; 80053; 85025; 93005; Q9967

== ENCOUNTER → 2025-09-24 12:53 | Outpatient (REF) | payer MEDICARE, SELFPAY | LOC: HWRAD 12:53 | PROVIDERS: ATTENDING PHYSICIAN Obstetrics & Gynecology Gynecologic Oncology; FAMILY PHYSICIAN Family Medicine | DX: N95.0 Postmenopausal bleeding (principal) | CPT/HCPCS: 76830; 76856 ==

== ENCOUNTER 2025-10-04 02:14 | Emergency (ER) | payer MEDICARE, SELFPAY ==
[2025-10-04 02:22] VITALS: BP 184/99
[2025-10-04 06:50] VITALS: BP 158/70; BMI 55.7
[2025-10-04] MEDS: VANCOCIN 540 MG IV (08:12)
--- NOTE | 2025-10-04 08:59 | ED.GENMED ---
History of Present Illness
General
Chief Complaint: Skin Problem
Source: patient
Exam Limitations: none
Time Seen by Provider: 10/04/25 07:25
Nursing documentation reviewed up to this point in time: agreed with
History of Present Illness
History of Present Illness:
Patient with history of chronic leg swelling due to venous insufficiency, along with previous history of leg cellulitis, presents to ED secondary to worsening left lower leg redness/swelling/pain, despite taking Bactrim for the past 5 days, as
prescribed by her primary care physician. Denies fever or chills. Denies nausea or vomiting. Denies open wound. Denies loss of sensation or weakness. Denies trauma. In addition, secondary to vaginal bleeding, patient is scheduled for
'procedure with flight operations coordinator' tomorrow at another hospital. Patient does not wish to miss the procedure, as it has been difficult to arrange. Patient's gynecology office is aware that patient is on antibiotics, as she spoke with staff member 2
days ago.
Past History
Past History
ED Past Medical History: HTN, Hypercholesterolemia, NIDDM, Other (lymphedema) and Other (Calculus cholecystitis)
ED Past Surgical History: Cardiac, Gynecological and Other (cataracts. Vein surgery)
Social History
Tobacco: Non-smoker
Alcohol: None
Drug: None
Personal:
Living: with family
Employment: Retired
Family History
Family History: Other (Noncontributory)
Review of Systems
Review of Systems
Allergies reviewed?: Yes
All Other Systems: ROS reviewed and negative except as documented in HPI and ROS
Constitutional: Reports no symptoms; Denies fever or chills
ABD/GI: Reports no symptoms
Musculoskeletal: Reports no symptoms
Skin: Reports other (Leg infection)
Neurological: Reports no symptoms
Phy Exam
Physical Exam
Physical Exam:
Physical Exam
General: no apparent distress, not acutely ill. afebrile. overweight
Head: nc/at. eomi
Neck: supple. no meningeal signs.
Abdomen: normal bowel sounds. not tender.
Neuro: alert and oriented x 3. no focal neurological deficits
Skin: LLE: mild erythema with scaly appearance above ankle up to midcalf, without open wound/drainage
Psychiatric: well kept. interactive and cooperative
Extremities: LE b/l edema. no calf tenderness.
Sepsis
Sepsis Screening
Sepsis Assessment: Sepsis Ruled Out
Sepsis Screen
Sepsis Screen: Sepsis Ruled Out
Date: 10/05/25
Time: 15:48
Course
Orders/Labs/Results
Orders:
Orders
10/04/25 07:43
0.9% Sodium Chloride 500 ml [Nss] 500 ml IV BOLUS
Pantoprazole [Protonix IV] 40 mg IV NOW STA
10/04/25 07:52
Vancomycin [Vancocin] 2,000 mg 0.9% Sodium Chloride 500 ml [Nss] 500 ml IV NOW
Vital Signs
Initial and Last Documented VS:
Initial Vital Signs
Temp Pulse Resp BP Pulse Ox
98.5 F 103 26 184/99 99
10/04/25 02:22 10/04/25 02:22 10/04/25 02:22 10/04/25 02:22 10/04/25 02:22
Last Documented Vital Signs
Temp Pulse Resp BP Pulse Ox
98.7 F 83 16 158/70 99
10/04/25 06:50 10/04/25 06:50 10/04/25 06:50 10/04/25 06:50 10/04/25 08:59
MDM/Problems Addressed
MDM/Problems Addressed:
History and exam concerning for worsening left lower leg erythema/swelling due to underlying venous insufficiency versus potential cellulitis. Patient fortunately is afebrile, hemodynamically stable, and without any significant exam findings
concerning for systemic infection. As such, had extensive discussion with patient regarding treatment options, including admission to hospital for IV antibiotics. However, in light of patient's gynecological procedure which I believe is urgent,
with patient's ongoing bleeding with potential mass, with concern for malignancy, decision made to discharge patient home after IV antibiotic dose and switching antibiotics to doxycycline, which patient has tolerated in the past. Advised to return
to ED with worsening symptoms. Patient expressed understanding, at time of discharge.
*Pulse Oximetry
SaO2: 99
Oxygen Mode of Delivery: Room air
Patient hypoxic: no
*Critical Care Note
Total Time (30-74mins, 75-104mins- exclusive of procedures): Not Applicable
ED Attending Note
-
Portions of this chart may have been created with voice recognition software.� Occasional wrong word or��sound alike� substitutions may have occurred due to the inherent limitations of voice recognition software.
Discharge Plan
Departure
Patient Disposition: Home (Routine Discharge)
Date of Disposition: 10/04/25
Time of Disposition: 09:07
Patient with high blood pressure during this ER visit?: Yes
Condition: Fair
Discharge Problem:
Cellulitis, Peripheral venous insufficiency
Instructions: Cellulitis (Skin Infection), Adult (DC)
Prescriptions:
New
doxycycline monohydrate 100 mg capsule
100 mg PO BID Qty: 14 0RF
No Action
cetirizine 10 MG tablet
10 mg PO DAILY
allopurinol 300 MG tablet
300 mg PO DAILY
gabapentin 100 MG capsule
200 mg PO TID
ezetimibe 10 MG tablet
10 mg PO DAILY
levothyroxine 125 MCG tablet
125 mcg PO DAILY
mirabegron [Myrbetriq] 50 mg Tablet Extended Release 24 Hr
50 mg PO DAILY
Praluent Pen 150 mg/mL Pen Injector
150 mg SC Q2W
losartan [Cozaar] 50 mg Tablet
50 mg PO BID
cyclobenzaprine 10 mg Tablet
10 mg PO TID PRN (Reason: muscle spasms )
pantoprazole 40 mg Tablet,Delayed Release (Dr/Ec)
40 mg PO HS
hydrocodone-acetaminophen 7.5-300 mg Tablet
1 tab PO DAILYPRN PRN (Reason: severe pain)
Patient Comments:
04/22/2025, per pt., she filled this med. years ago and still has some left; used [facility] records from 02/05/2025 to confirm this med.
Januvia 100 mg Tablet
100 mg PO DAILY
medroxyprogesterone [Provera] 10 mg tablet
10 mg PO TID
isosorbide mononitrate 60 mg Tablet Extended Release 24 Hr
90 mg PO DAILY
carvedilol 12.5 mg Tablet
12.5 mg PO BID Qty: 60 5RF
insulin degludec [Tresiba FlexTouch U-100] 100 unit/mL (3 mL) Insulin Pen
60 unit SC HS
fluticasone furoate-vilanterol [Breo Ellipta] 200-25 mcg/dose Blister With Device
1 inh INHALATION R DAILY
sulfamethoxazole-trimethoprim 800-160 mg Tablet
1 tab PO BID
Patient Comments:
04/22/2025, filled on 04/16/2025 and instructed to take 1 tablet BID for 10 days.
insulin aspart U-100 [Novolog FlexPen U-100 Insulin] 100 unit/mL (3 mL) Insulin Pen
22 unit SC AC
nitrofurantoin monohyd/m-cryst 100 mg Capsule
100 mg PO HS
cholecalciferol (vitamin D3) 1,250 mcg (50,000 unit) Capsule
1,250 mcg PO WE
ferrous sulfate 324 mg (65 mg iron) Tablet,Delayed Release (Dr/Ec)
324 mg PO DAILY
furosemide 40 mg tablet
20 mg PO DAILY
Referrals:
Bharti Armstrong DO [Family Provider, Family Practice]
Activity Restrictions/Additional Instructions:
As discussed, please follow-up with your primary care physician for reevaluation. Please consider return to ED with worsening symptoms. Your prescription has been sent electronically to [facility] pharmacy in [place]
Interventions
Interventions:
*General Assessment Last Done: 10/04/25 02:22
*Neglect/Abuse Screening Last Done: 10/04/25 02:22
*ED COVID-19 Vaccine History Last Done: 10/04/25 02:22
*ED Influenza Vaccine History Last Done: 10/04/25 02:22
[facility] Fall Risk Assessment Tool Last Done: 10/04/25 06:51
*Risk Screen - Suicide (C-SSRS) Last Done: 10/04/25 02:22
*Nursing Disposition Last Done: 10/04/25 10:57
Discharge Date and Time
Discharge Date/Time: 10/04/25 10:57
Print Language: MALAWIAN
== END 2025-10-04 10:57 | disposition home or self-care (01) ==
LOC: EMR 02:14
PROVIDERS: EMERGENCY PHYSICIAN Emergency Medicine; FAMILY PHYSICIAN Family Medicine
DX: L03.116 Cellulitis of left lower limb (principal); I87.2 Venous insufficiency (chronic) (peripheral); E11.9 Type 2 diabetes mellitus without complications; E78.00 Pure hypercholesterolemia, unspecified; I10 Essential (primary) hypertension
CPT/HCPCS: 96374; 99284